=== PATIENT | female | born 1955 | race Caucasian/White ===

== ENCOUNTER 2017-08-15 06:11 | Day surgery (SDC) | payer BC, OTHER ==
[2017-08-04 12:40] VITALS: BMI 36.0
[~2017-08-15 06:11] MED LIST: SODIUM CHLORIDE 0.9% 1,000 ML IV SCH
[2017-08-15] MEDS ORDERED: HYDROmorphone (PF) 1 MG/ML ONE (07:26)
[2017-08-15] MEDS ORDERED: PROPOFOL 10 MG/ML 20 ML VIAL IV ONE (07:26)
[2017-08-15] MEDS ORDERED: SUCCINYLCHOLINE CHLORIDE 100 MG/5 ML SYR IV ONE (07:26)
[2017-08-15] MEDS ORDERED: IV FLUID CONTINUATION 1,000 ML IV ONE (07:26)
[2017-08-15] MEDS ORDERED: ePHEDrine SULFATE/0.9% NACL/PF 50 MG/5 ML SYRINGE IV ONE (07:26)
[2017-08-15] MEDS ORDERED: LIDOCAINE 1% INJ 10MG/ML (20 ML MDV) ONE (07:26)
[2017-08-15] MEDS ORDERED: MIDAZOLAM 2 MG/2 ML VIAL ONE (07:26)
[2017-08-15] MEDS ORDERED: ISOPROTERENOL 250 MCG/1.25 ML SYR IV ONE (07:26)
[2017-08-15] MEDS ORDERED: fentaNYL (PF) 50 MCG/ML 2 ML AMP ONE (07:26)
[2017-08-15] MEDS ORDERED: PROTAMINE SULFATE 10 MG/ML 5 ML VIAL IV ONE (07:26)
[2017-08-15] MEDS ORDERED: PHENYLEPHRINE-0.9% NACL SYG 1 MG/10 ML SYRINGE ONE (07:26)
[2017-08-15] MEDS ORDERED: HEPARIN SODIUM,PORCINE 10,000 UNIT/ML 1 ML VIAL ONE (07:26)
[2017-08-15] MEDS ORDERED: ceFAZolin IN SWFI 2 GM/20 ML SYRINGE IVP ONE (07:30)
[2017-08-15 07:32] LABS: INR 2.2 (<1.2); Prothrombin Time 19.6 sec (9.0-12.0)
[2017-08-15] MEDS ORDERED: HEPARIN SOD,PORK IN 0.45% NACL 25,000 UNIT in 0.45% NACL 1 500ML.BAG IV ONE (08:05)
[2017-08-15] MEDS ORDERED: LIDOCAINE 2% INJ 20 MG/ML SQ ONE ×2 (08:13→08:15)
[2017-08-15] MEDS ORDERED: ACETAMINOPHEN TAB 325 MG TAB PO PRN (10:52)
[2017-08-15] MEDS ORDERED: HYDROcodone/APAP 5-325MG 1 EACH TAB PO PRN (10:52)
[2017-08-15] MEDS ORDERED: IOHEXOL 350 MG/ML 125ML BOTTLE INJ ONE (10:54)
--- NOTE | 2017-08-15 11:08 | P.PCN ---
Preoperative Diagnosis: Procedures performed ([facility] - CRYO Ablation) Invasive hemodynamic monitoring while general anesthesia, right femoral arterial line for monitoring and sampling Comprehensive diagnostic EP study with attempted arrhythmia induction CS pacing and recording Drug infusion Catheter the mapping of the tachycardia (NOT 3D mapping) Intracardiac echocardiography Pulmonary vein isolation with transseptal and comprehensive EPS, [id number] Dual-chamber pacemaker interrogation with reprogramming Procedure details Patient was brought to the EP lab in a fasting state. Written informed consent was obtained prior to the procedure. Procedure performed under general anesthesia After initial muscle relaxant use, muscle relaxants were not given thereafter in order to assess phrenic nerve during procedure Patient prepped and draped as per protocol Full cryo-set up with standard preparation of the cryoablation tools done Femoral Venous access obtained on the right and left groins Sheaths placed Diagnostic catheters for the high right atrium, phrenic nerve stimulation and pacing, His bundle, RV and coronary sinus placed Intracardiac echo catheter placed Long sheath placed in the right atrium Left and right transseptal catheterization performed under intracardiac echo guidance Intravenous heparin with aCT above 300 Later, catheter positioning and balloon positioning under intracardiac echo Baseline measurements Sinus cycle length 831 ms, PA interval 182 ms, QRS 84 ms and QT 470 ms AH 50 ms and HV 41 ms Comprehensive diagnostic EP study with drug infusion Atrial pacing performed from the high right atrium and the coronary sinus Sinus recovery times at 600 504 100 ms were 1421, 1410 and 26471 seconds respectively did AV node Wenckebach block for 20 ms. Asynchronous CS and from the right ventricle. Pacing from the high right atrium. VA Wenckebach block for 20 ms. AV node Wenckebach block on Isuprel 370 ms No atrial fibrillation induced during pacing on high-dose Isuprel Transseptal catheterization performed RA pressure 25/8/15 LA pressure 15/8/12 Transseptal catheterization performed with standard sheath. The cryoablation sheath was then placed with an over the wire exchange without any acute complications. All 4 pulmonary veins were isolated in the following sequence: Left superior followed by left inferior followed by right superior followed by right inferior The cryo-ablation balloon was placed at the os of each vein 1.5 mL of IV dye was injected to confirm an occluded vein Goal during cryoablation was to achieve -30C in the first 30 seconds. If not the balloon was repositioned to obtain this result After completion of Cryoblation with durations from 180-240 seconds, entrance block was confirmed with the Attain circular catheter in a roving fashion around the antrum of the pulmonary veins Phrenic nerve pacing was performed from the SVC, right innominate vein area and diaphragm voltage was monitored as well as manually Parameter goals for each cryo freeze -30C by 30 seconds -40C by 60 seconds Mediated between minus 40-55 Thaw time greater than 10 seconds Balloon visualized by intracardiac echo to ensure that the proximal one third was within the left atrium/antrum Left superior pulmonary vein 4 minute single cryoablation in the left superior 2 minute single cryoablation in the left middle Complete isolation with entrance block and exit block Left inferior pulmonary vein Successful cryoablation 2 minutes followed by 3 minutes with complete isolation with entrance and exit block Right superior pulmonary vein, during phrenic nerve pacing 2 minutes followed by 3 minutes of Cryoblation with entrance and exit block Right inferior pulmonary vein, during phrenic nerve pacing 2 minutes followed by 3 minutes of cryoablation with complete isolation with entrance and exit block At the end of the procedure the Achieve catheter was once again used to check for entrance block Phrenic nerve stimulation was performed to confirm diaphragmatic stimulation the end of the procedure Cine fluoroscopy was performed at the very end of the procedure to confirm movement of both diaphragms with inspiration and expiration At the end of the procedure the patient was extubated Heparin was reversed Venous sheaths were removed and hemostasis assured Result Successful pulmonary vein isolation using cryo-ablation Complete entrance block in all 4 veins confirmed No evidence for phrenic nerve injury Condition: stable
[2017-08-15] MEDS ORDERED: SODIUM CHLORIDE 0.9% 500 ML IV ONE (11:54)
[2017-08-15] MEDS ORDERED: ACETAMINOPHEN IV (For NPO) 1,000 MG in EMPTY BAG 1 BAG IVPB ONE (13:30)
[2017-08-15] MEDS ORDERED: WARFARIN 5 MG TAB PO ONE (18:00)
[2017-08-16 02:09] VITALS: RESP 18
[2017-08-16] MEDS ORDERED: FUROSEMIDE 40 MG TAB PO ONE (07:00)
--- NOTE | 2017-08-16 08:12 | P.DS ---
Providers Attending physician: Murali Oneil Primary care physician: [facility] Course: Patient is doing reasonably well from a cardiac standpoint. Temperature 98.5F blood pressure 117/61 mmHg respirations 16 unlabored she is resting comfortably in bed about to have breakfast pulse rate is in the 60s no atrial fibrillation she complains of an achy sensation all across her chest in the front and on the sides slightly was taking a deep breath and she also complains of cough Breath sounds are clear no rhonchi no crackles heart sounds S1 and S2 are normal no murmurs or gallops Abdomen soft nontender Both groins have healed well there is no hematoma no tenderness no lower extremity edema Impression Paroxysmal symptomatic atrial fibrillation with RVR and intolerant of flecainide and breakthrough episodes on flecainide status post cryoablation of the pulmonary veins, successful Sick sinus syndrome status post permanent pacemaker implantation previously 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 patient presented with TIA at that time in years back no recurrences since Plan No changes in medications, discharge home today after lunch, it was emphasized to the patient to ambulate in the hallways prior to discharge and to avoid lifting anything heavy about 10 pounds for the next 3-4 days but ambulate at home and not rest in bed Patient Condition at Discharge: Stable Plan - Discharge Summary Discharge Rx Participant: No New Discharge Prescriptions: Continue Warfarin [Coumadin] 2.5 mg PO SUTUFRSA Warfarin [Coumadin] 5 mg PO SUMOWEFR traMADol HCL [Ultram] 50 mg PO DIRECTED PRN PRN Reason: Migraine Headache Digoxin [Lanoxin] 125 mcg PO DAILY Metoprolol Succinate [Toprol XL] 50 mg PO DIRECTED Discharge Medication List Warfarin [Coumadin] 2.5 mg PO SUTUFRSA 04/29/16 [History] Warfarin [Coumadin] 5 mg PO SUMOWEFR 04/29/16 [History] traMADol HCL [Ultram] 50 mg PO DIRECTED PRN 04/29/16 [History] Digoxin [Lanoxin] 125 mcg PO DAILY 08/04/17 [History] Metoprolol Succinate [Toprol XL] 50 mg PO DIRECTED 08/15/17 [History] Follow up Appointment(s)/Referral(s): Murali Oneil MD [STAFF PHYSICIAN] - 2 Weeks Patient Instructions/Handouts: Cardiac Ablation (DC) Activity/Diet/Wound Care/Special Instructions: Post EP study - Ablation instructions 1. Keep access sites dry for 2 days. 2. No heavy lifting or straining for 2 days. 3. Avoid bending the hips repeatedly for 2 days. 4. You may go up and down stairs slowly Call if the following is noted 1. Bleeding, increasing swelling or pain at the access sites. 2. Increasing chest discomfort, especially upon taking a deep breath. 3. Increasing shortness of breath, at rest or with exertion. 4. Undue cough / phlegm 5. Difficulty or pain while swallowing. 6. Pain or change in color in the extremities. 7. Fever, chills, rigors. 8. Increasing headache or neurologic symptoms. 9. Dizziness, fainting, palpitations No changes in home medications No new medications Follow-up in the office within 2 weeks for a groin check along with a PT[facility] check [facility] Continue Coumadin lifelong Discharge Disposition: HOME SELF-CARE
[2017-08-16] MEDS ORDERED: DIGOXIN 125 MCG TAB PO SCH (09:00)
[2017-08-16 11:44] VITALS: BP 124/66; PULSE 73; TEMP 98.1
[2017-08-16] MEDS ORDERED: WARFARIN 5 MG TAB PO SCH (18:00)
[2017-08-18] MEDS ORDERED: WARFARIN 2.5 MG TAB PO SCH (18:00)
== END 2017-08-16 12:01 | disposition home or self-care (01) ==
LOC: CATHEP 06:11 → 6SEL 10:36 → CATHEP 08-16 12:01
PROVIDERS: ATTEND Internal Medicine Clinical Cardiac Electrophysiology
DX: I48.0 Paroxysmal atrial fibrillation (principal); I49.5 Sick sinus syndrome; I47.1 Supraventricular tachycardia; Z79.01 Long term (current) use of anticoagulants; Z95.0 Presence of cardiac pacemaker; Z86.73 Personal history of transient ischemic attack (TIA), and cerebral infarction without residual deficits; Z85.29 Personal history of malignant neoplasm of other respiratory and intrathoracic organs; Z79.899 Other long term (current) drug therapy; Z82.49 Family history of ischemic heart disease and other diseases of the circulatory system
CPT/HCPCS: 85347; 93662; 93609; 93656; 85610; C1769 ×4; C1894 ×3; C1730 ×3; C1759; C1893; C1733; C1766; J2001 ×2; J2250; J2720; J1644 ×2; J0690; J3010; J1170; J0131; J2370; J0330; J2704; Q9967

== ENCOUNTER → 2019-06-17 | Outpatient (CLI) | payer BC, OTHER ==
[2019-06-17 08:53] LABS: INR 1.2 (<1.2); Prothrombin Time 12.4 sec (9.0-12.0)
== END ==
LOC: LABWHC1 08:19
PROVIDERS: ATTEND Family Medicine
DX: I48.91 Unspecified atrial fibrillation (principal)
CPT/HCPCS: 36415; 85610

== ENCOUNTER 2021-08-08 11:19 | Emergency (ER) | payer MEDICARE, OTHER ==
[2021-08-08 12:09] VITALS: RESP 18
[2021-08-08] MEDS ORDERED: KETOROLAC 15 MG/ML 1 ML VIAL IVP STA (12:09)
[2021-08-08] MEDS ORDERED: SODIUM CHLORIDE 0.9% 500 ML 500 ML IV STA (12:09)
--- NOTE | 2021-08-08 12:09 | ED ---
General Adult HPI - General Chief complaint: Urogenital Stated complaint: left hip and back pain Time Seen by Provider: 08/08/21 11:55 Source: patient, RN notes reviewed, old records reviewed Mode of arrival: ambulatory Limitations: no limitations - History of Present Illness Initial comments: 66-year-old female, alert and oriented 4, presents to the emergency room with complaints of left flank pain that started today with urinary frequency since July 25. She states that she did see her primary care doctor and had a urinalysis and culture done and was negative. Patient states that she continues to have this left flank pain but denies fevers. She states that it does not burn with urination however she feels a pressure like she needs to go however only small amounts come out. She denies any blood in her urine. She describes the pain as constant and comes and goes in waves that increase in pain. She does have a decreased appetite but no nausea vomiting or diarrhea. History of atrial fibrillation and CVA. She states that she is on coumadin. -: week(s) (2) Location: back (flank), left Radiation: flank Severity scale (1-10): 6 Consistency: constant Associated Symptoms: other (urinary frequency) - Related Data Home Medications Medication Instructions Recorded Confirmed Warfarin [Coumadin] 2.5 mg PO SUTUFRSA 04/29/16 08/15/17 Warfarin [Coumadin] 5 mg PO SUMOWEFR 04/29/16 08/15/17 traMADol HCL [Ultram] 50 mg PO DIRECTED PRN 04/29/16 08/15/17 Digoxin [Lanoxin] 125 mcg PO DAILY 08/04/17 08/15/17 Metoprolol Succinate [Toprol XL] 50 mg PO DIRECTED 08/15/17 08/15/17 Allergies Allergy/AdvReac Type Severity Reaction Status Date / Time povidone-iodine Allergy Unknown Rash/Hives, Verified 08/08/21 11:43 [From Betadine] Swelling soap [From Betadine] Allergy Unknown Rash/Hives, Verified 08/08/21 11:43 Swelling Review of Systems ROS Statement: Those systems with pertinent positive or pertinent negative responses have been documented in the HPI. ROS Other: All systems not noted in ROS Statement are negative. 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 Past Anesthesia/Blood Transfusion Reactions: No Reported Reaction, Motion Sickness Additional Past Anesthesia/Blood Transfusion Reaction / Comment(s): MOTION SICKNESS IF READING IN CAR. Type of Cardiac Device: Permanent Pacemaker Device Placement Date:: 07/11/16-[employer] Past Psychological History: No Psychological Hx Reported Smoking Status: Never smoker Past Alcohol Use History: Rare Past Drug Use History: None Reported - Past Family History Father Family Medical History: Cancer Additional Family Medical History / Comment(s): LYMPHOMA General Exam Limitations: no limitations General appearance: alert, in no apparent distress Head exam: Present: atraumatic, normocephalic, normal inspection Eye exam: Present: normal appearance, EOMI. Absent: scleral icterus, conjunctival injection ENT exam: Present: normal exam, normal oropharynx, mucous membranes moist Respiratory exam: Present: normal lung sounds bilaterally. Absent: respiratory distress, wheezes, rales, rhonchi, stridor, chest wall tenderness, accessory muscle use Cardiovascular Exam: Present: regular rate, normal rhythm, normal heart sounds. Absent: systolic murmur, diastolic murmur, rubs, gallop, clicks GI/Abdominal exam: Present: soft, tenderness (left lower quadrant and flank). Absent: distended Extremities exam: Present: normal inspection, full ROM, normal capillary refill. Absent: tenderness, pedal edema, joint swelling, calf tenderness Back exam: Present: normal inspection, full ROM. Absent: tenderness, CVA tenderness (R), CVA tenderness (L), rash noted Neurological exam: Present: alert, oriented X3, normal gait Psychiatric exam: Present: normal affect, normal mood Skin exam: Present: warm, dry, intact, normal color. Absent: rash Course Vital Signs 08/08/21 08/08/21 12:05 13:55 Temperature 98.8 F 98.5 F Pulse Rate 68 54 L Respiratory 18 18 Rate Blood Pressure 158/84 112/57 O2 Sat by Pulse 99 99 Oximetry Medical Decision Making - Medical Decision Making 66-year-old female presents with complaints of left flank pain that started today with urinary frequency since July 25. She did see her primary care doctor and UA and culture was negative. She describes the pain as constant and comes and goes in waves that increase in pain. She denies nausea vomiting or diarrhea. CT of the abdomen shows diverticulosis without diverticulitis. There is no suspicious changes to account for the left flank pain. No renal or ureteral stones evident. KUB x-ray shows nonspecific abdomen. There is no evidence of leukocytosis. UA is negative ketones, positive for blood. Patient states that pain has resolved and she's been able to urinate in larger amounts since coming to ER. This is likely a kidney stone that has passed. She was referred to follow up with her primary care doctor and urology as needed. Return to the emergency room with any new or concerning symptoms. Case discussed with Dr. Cabrales - Lab Data Result diagrams: 08/08/21 12:48 08/08/21 12:48 Lab Results 08/08/21 08/08/21 08/08/21 Range/Units 12:04 12:48 12:48 WBC 6.5 (3.8-10.6) k/uL RBC 5.24 (3.80-5.40) m/uL Hgb 15.0 (11.4-16.0) gm/dL Hct 45.6 (34.0-46.0) % MCV 87.1 (80.0-100.0) fL MCH 28.7 (25.0-35.0) pg MCHC 32.9 (31.0-37.0) g/dL RDW 13.5 (11.5-15.5) % Plt Count 229 (150-450) k/uL MPV 8.6 Neutrophils % 53 % Lymphocytes % 36 % Monocytes % 6 % Eosinophils % 3 % Basophils % 1 % Neutrophils # 3.4 (1.3-7.7) k/uL Lymphocytes # 2.3 (1.0-4.8) k/uL Monocytes # 0.4 (0-1.0) k/uL Eosinophils # 0.2 (0-0.7) k/uL Basophils # 0.1 (0-0.2) k/uL Sodium 142 (137-145) mmol/L Potassium 4.5 (3.5-5.1) mmol/L Chloride 107 (98-107) mmol/L Carbon Dioxide 28 (22-30) mmol/L Anion Gap 7 mmol/L BUN 16 (7-17) mg/dL Creatinine 0.84 (0.52-1.04) mg/dL Est GFR (CKD-EPI)AfAm 84 (>60 ml/min/1.73 sqM) Est GFR (CKD-EPI)NonAf 73 (>60 ml/min/1.73 sqM) Glucose 109 H (74-99) mg/dL Calcium 10.7 H (8.4-10.2) mg/dL Total Bilirubin 1.5 H (0.2-1.3) mg/dL AST 29 (14-36) U/L ALT 23 (4-34) U/L Alkaline Phosphatase 104 (38-126) U/L Total Protein 7.4 (6.3-8.2) g/dL Albumin 4.4 (3.5-5.0) g/dL Amylase 66 (30-110) U/L Lipase 97 (23-300) U/L Urine Color Light Yellow Urine Appearance Clear (Clear) Urine pH 6.0 (5.0-8.0) Ur Specific [place] 1.003 (1.001-1.035) Urine Protein Negative (Negative) Urine Glucose (UA) Negative (Negative) Urine Ketones Negative (Negative) Urine Blood Large H (Negative) Urine Nitrite Negative (Negative) Urine Bilirubin Negative (Negative) Urine Urobilinogen <2.0 (<2.0) mg/dL Ur Leukocyte Esterase Small H (Negative) Urine RBC 2 (0-5) /hpf Urine WBC 2 (0-5) /hpf Ur Squamous Epith Cells 1 (0-4) /hpf Urine Bacteria Rare H (None) /hpf Disposition Clinical Impression: Dysuria Disposition: HOME SELF-CARE Condition: Good Instructions (If sedation given, give patient instructions): Dysuria (ED) Additional Instructions: Follow-up with your primary care doctor next week. Return to the emergency room with any new or worsening symptoms including increased pain, inability to urinate, fevers, nausea or vomiting. Is patient prescribed a controlled substance at d/c from ED?: No Referrals: Nonstaff,Physician [Primary Care Provider] - 1-2 days Ashvin Jolley MD [STAFF PHYSICIAN] - 1-2 days Time of Disposition: 13:26
--- NOTE | 2021-08-08 12:43 | XR ---
EXAMINATION TYPE: XR KUB DATE OF EXAM: 08/08/2021 COMPARISON: None INDICATION: Lower abdominal pain and back pain and urinary urgency TECHNIQUE: Single view abdomen upright view FINDINGS: There is a normal bowel gas pattern. Psoas margins are normal. No organomegaly is present. No free air is evident. No suspicious differential air-fluid levels are present. IMPRESSION: 1. Nonspecific abdomen
[2021-08-08 12:50] LABS: Appearance,Urine Clear (Clear); Bacteria,Urine Rare /hpf; Bilirubin,Urine Negative (Negative); Blood,Urine Large (Negative); Color,Urine Light Yellow; Glucose,Urine (UA) Negative (Negative); Ketones,Urine Negative (Negative); Leukocyte Esterase,Urine Small (Negative); Nitrite,Urine Negative (Negative); Protein,Urine Negative (Negative); RBC,Urine 2 /hpf (0-5); Specific Gravity,Urine 1.003 (1.001-1.035); Squamous Epithelial Cell,Urine 1 /hpf (0-4); Urobilinogen,Urine <2.0 mg/dL (<2.0); WBC,Urine 2 /hpf (0-5)
[2021-08-08 12:57] LABS: Basophils # (A) 0.1 k/uL (0-0.2); Basophils % (A) 1 %; Eosinophils # (A) 0.2 k/uL (0-0.7); Eosinophils % (A) 3 %; HCT 45.6 % (34.0-46.0); Lymphocytes # (A) 2.3 k/uL (1.0-4.8); Lymphocytes % (A) 36 %; MCH 28.7 pg (25.0-35.0); MCHC 32.9 g/dL (31.0-37.0); MCV 87.1 fL (80.0-100.0); Mean Platelet Volume 8.6; Monocytes # (A) 0.4 k/uL (0-1.0); Monocytes % (A) 6 %; Neutrophils # (A) 3.4 k/uL (1.3-7.7); Neutrophils % (A) 53 %; Platelet Count 229 k/uL (150-450); RBC 5.24 m/uL (3.80-5.40); RDW 13.5 % (11.5-15.5); WBC 6.5 k/uL (3.8-10.6)
--- NOTE | 2021-08-08 12:58 | CT ---
EXAMINATION TYPE: CT abdomen pelvis wo con DATE OF EXAM: 08/08/2021 COMPARISON: None INDICATION: left flank pain DLP: 1031.4 mGycm, Automated exposure control for dose reduction was used. CONTRAST: 0 mL of Isovue 300. Study performed without Oral Contrast TECHNIQUE: Axial images were obtained from above the diaphragm to the pubic rami in the axial plane a t 5 mm thick sections. Reconstructed images are reviewed on the computer in the coronal plane. FINDINGS: Limited CT sections are obtained the lung bases. The lung bases are clear. CT ABDOMEN: Liver: Normal Spleen: Normal Pancreas: Normal Adrenal glands: The adrenal glands are normal. Gallbladder: Normal Kidneys: No masses are evident. No hydronephrosis is present. No hydroureter is evident. No cysts a re present. No renal or ureteral stones are evident. Aorta: Vascular calcification is within the aorta. Inferior vena cava: Normal. CT PELVIS: Loops of bowel within the abdomen and pelvis are normal. A few small scattered diverticuli within the proximal sigmoid colon. No inflammatory changes are adjacent to suggest acute diverticulitis. The study is without oral contrast limiting evaluation. Appendix: Not identified. No suspicious dilated tubular structure or inflammatory changes are evident . Urinary bladder: Normal. Genitourinary structures: Uterus and ovaries not identified. Osseous structures: No suspicious lytic or sclerotic lesions. IMPRESSIONS: 1. Diverticulosis without acute diverticulitis. 2. No suspicious changes to account for left flank pain
[2021-08-08 13:13] LABS: Albumin 4.4 g/dL (3.5-5.0); Calcium 10.7 mg/dL (8.4-10.2); Total Bilirubin 1.5 mg/dL (0.2-1.3); Total Protein 7.4 g/dL (6.3-8.2)
[2021-08-08 13:25] LABS: Potassium 4.5 mmol/L (3.5-5.1)
[2021-08-08 14:35] VITALS: BP 112/57; PULSE 54; TEMP 98.5
== END 2021-08-08 13:55 | disposition home or self-care (01) ==
LOC: EC 11:19
DX: R30.0 Dysuria (principal); I48.91 Unspecified atrial fibrillation; I50.9 Heart failure, unspecified; M19.90 Unspecified osteoarthritis, unspecified site; Z79.01 Long term (current) use of anticoagulants; Z86.73 Personal history of transient ischemic attack (TIA), and cerebral infarction without residual deficits; Z90.710 Acquired absence of both cervix and uterus; Z95.0 Presence of cardiac pacemaker
CPT/HCPCS: 36415; 51798; 74018; 74176; 80053; 81001; 82150; 83690; 85025; 96360; 99284

== ENCOUNTER 2022-12-11 23:23 | Inpatient (IN) | payer MEDICARE, OTHER ==
[2022-12-12 00:32] LABS: Basophils % (A) 0 %; Eosinophils # (A) 0.1 k/uL (0-0.7); Eosinophils % (A) 1 %; HCT 37.5 % (34.0-46.0); HGB 12.8 gm/dL (11.4-16.0); Lymphocytes # (A) 2.5 k/uL (1.0-4.8); Lymphocytes % (A) 35 %; MCH 28.3 pg (25.0-35.0); MCHC 34.2 g/dL (31.0-37.0); MCV 82.6 fL (80.0-100.0); Mean Platelet Volume 9.2; Monocytes # (A) 0.5 k/uL (0-1.0); Monocytes % (A) 7 %; Neutrophils # (A) 3.9 k/uL (1.3-7.7); Neutrophils % (A) 54 %; Platelet Count 216 k/uL (150-450); RBC 4.55 m/uL (3.80-5.40); RDW 13.9 % (11.5-15.5); WBC 7.2 k/uL (3.8-10.6)
[2022-12-12 00:37] LABS: ALT 25 U/L (4-34); AST 32 U/L (14-36); African American GFR (CKD) >90 (>60 ml/min/1.73 sqM); Albumin 4.1 g/dL (3.5-5.0); Alkaline Phosphatase 81 U/L (38-126); Anion Gap 11 mmol/L; Blood Urea Nitrogen 13 mg/dL (7-17); Calcium 9.6 mg/dL (8.4-10.2); Carbon Dioxide 22 mmol/L (22-30); Chloride 105 mmol/L (98-107); Glucose 117 mg/dL (74-99); Non-African American GFR(CKD) 88 (>60 ml/min/1.73 sqM); Potassium 4.1 mmol/L (3.5-5.1); Sodium 138 mmol/L (137-145); Total Bilirubin 3.8 mg/dL (0.2-1.3); Total Protein 6.7 g/dL (6.3-8.2)
[2022-12-12 00:43] LABS: Prothrombin Time 113.3 sec (9.0-12.0)
[2022-12-12 00:58] LABS: INR >10.0 (<1.2); Partial Thromboplastin Time 80.6 sec (22.0-30.0)
--- NOTE | 2022-12-12 01:08 | ED ---
General Adult HPI - General Chief complaint: Recheck/Abnormal Lab/Rx Stated complaint: Throat Swelling, Difficulty Breathing Time Seen by Provider: 12/11/22 23:46 Source: patient, family, RN notes reviewed Mode of arrival: wheelchair Limitations: no limitations - History of Present Illness Initial comments: 67-year-old female with past medical history of valve replacement and atrial fibrillation presents to the emergency department with a chief complaint of abnormal labs. Patient reports that she was evaluated here 12/10/2022 and had an elevated INR value. She reports that she is on Coumadin and has been for 20 years. She reports that she was encouraged to return to the emergency department if symptoms worsen or persist. Today she is complaining of worsening bruising and difficulty swallowing sensation. She denies any, or injury. She denies any fever, chills, hematemesis, hematemesis, nausea, vomiting, chest pain, shortness of breath, dyspnea, edema. She reports that she stopped taking her Coumadin on 12/09/2022. - Related Data Home Medications Medication Instructions Recorded Confirmed Warfarin [Coumadin] 2.5 mg PO TUSA 04/29/16 12/12/22 Warfarin [Coumadin] 5 mg PO SUMOWETHFR 04/29/16 12/12/22 traMADol HCL [Ultram] 50 mg PO QID PRN 04/29/16 12/12/22 Digoxin [Lanoxin] 125 mcg PO DAILY 08/04/17 12/12/22 Rosuvastatin [Crestor] 10 mg PO HS 12/12/22 12/12/22 clonazePAM [KlonoPIN] 1 mg PO HS 12/12/22 12/12/22 Allergies Allergy/AdvReac Type Severity Reaction Status Date / Time povidone-iodine Allergy Unknown Rash/Hives, Verified 12/12/22 08:01 [From Betadine] Swelling soap [From Betadine] Allergy Unknown Rash/Hives, Verified 12/12/22 08:01 Swelling meat AdvReac Does not Uncoded 12/12/22 08:01 eat meat Review of Systems ROS Statement: Those systems with pertinent positive or pertinent negative responses have been documented in the HPI. ROS Other: All systems not noted in ROS Statement are negative. 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 Past Anesthesia/Blood Transfusion Reactions: No Reported Reaction, Motion Sickness Additional Past Anesthesia/Blood Transfusion Reaction / Comment(s): MOTION SI CKNESS IF READING IN CAR. Type of Cardiac Device: Permanent Pacemaker Device Placement Date:: 07/11/16-[facility] Past Psychological History: No Psychological Hx Reported Smoking Status: Never smoker Past Alcohol Use History: Rare Past Drug Use History: None Reported - Past Family History Father Family Medical History: Cancer Additional Family Medical History / Comment(s): LYMPHOMA General Exam - General Exam Comments Initial Comments: General: Alert, in no acute distress Head: atraumatic normocephalic. Eyes PERRL, EOMI intact, mucous membranes moist, airway patent patient able to speak in complete sentences ecchymosis underneath her tongue Respiratory: Lungs clear to auscultation bilaterally Cardiovascular: Heart rate regular rate and rhythm Abdominal: Soft without guarding or rebound Extremities: Normal inspection with full range of motion and normal capillary r efill, large bruise on left forearm, full range of motion bilateral upper extremities left hand is tender Neuroogic: alert and oriented 3, CN II-XII intact, able to ambulate with steady gait Skin: warm dry and intact with normal color Limitations: no limitations Course Vital Signs 12/11/22 12/11/22 12/12/22 23:35 23:55 03:22 Temperature 97.4 F L 98.2 F Pulse Rate 80 80 57 L Respiratory 16 18 18 Rate Blood Pressure 121/84 O2 Sat by Pulse 97 99 98 Oximetry 12/12/22 12/12/22 12/12/22 07:59 12:00 14:06 Temperature Pulse Rate 77 72 80 Respiratory 18 18 18 Rate Blood Pressure O2 Sat by Pulse 98 96 100 Oximetry 12/12/22 15:09 Temperature Pulse Rate 88 Respiratory 18 Rate Blood Pressure O2 Sat by Pulse 96 Oximetry - Reevaluation(s) Reevaluation #1: 12/12/22 01:20 Case discussed with urine from the agrees and accepts the patient for admission EKG Findings - EKG Comments: EKG Findings:: I interpreted the following: EKG performed at 1202 rate 80 bpm normal sinus rhythm WA interval 175, QRS duration 84, QT/QTc 347/382 Medical Decision Making - Medical Decision Making Was pt. sent in by a medical professional or institution (VENITA Morley, MUSIC SOUND LIGHT TECHNICIAN, urgent care, hospital, or assisted...) When possible be specific @ -[No] Did you speak to anyone other than the patient for history (EMS, parent, family, police, friend...)? What history was obtained from this source @ -[No] Did you review nursing and triage notes (agree or disagree)? Why? @ -[I reviewed and agree with nursing and triage notes] Were old charts reviewed (outside hosp., previous admission, EMS record, old EKG, old radiological studies, urgent care reports/EKG's, assisted records)? Report findings @ -[No old charts were reviewed] Differential Diagnosis (chest pain, altered mental status, abdominal pain women, abdominal pain men, vaginal bleeding, weakness, fever, dyspnea, syncope, headache, dizziness, GI bleed, back pain, seizure, CVA, palpatations, mental health, musculoskeletal)? @ -[not applicable] EKG interpreted by me (3pts min.). @ -[As above] X-rays interpreted by me (1pt min.). @ -[None done] CT interpreted by me (1pt min.). @ -[None done] U/S interpreted by me (1pt. min.). @ -[None done] What testing was considered but not performed or refused? (CT, X-rays, U/S, labs)? Why? @ -[None] What meds were considered but not given or refused? Why? @ -[None] Did you discuss the management of the patient with other professionals (professionals i.e. VENITA Morley, MUSIC SOUND LIGHT TECHNICIAN, lab, RT, psych nurse, social services assistant, public affairs officer, teacher, amphibious operations officer, home health care case manager)? Give summary @ -[No] Was smoking cessation discussed for >3mins.? @ -[No] Was critical care preformed (if so, how long)? @ -[No] Were there social determinants of health that impacted care today? How? (Homelessness, low income, unemployed, alcoholism, drug addiction, transportation, low edu. Level, literacy, decrease access to med. care, prison, rehab)? @ -[No] Was there de-escalation of care discussed even if they declined (Discuss DNR or withdrawal of care, Hospice)? DNR status @ -[No] What co-morbidities impacted this encounter? (DM, HTN, Smoking, COPD, CAD, Cancer, CVA, ARF, Chemo, Hep., AIDS, mental health diagnosis, sleep apnea, morbid obesity)? @ -[None] Was patient admitted / discharged? Hospital course, mention meds given and route, prescriptions, significant lab abnormalities, going to OR and other pertinent info. @ -67-year-old female presents to the emergency department with abnormal labs. Patient had a thorough history and physical exam performed heart rate regular rate and rhythm, lungs clear to auscultation bilaterally, abdomen is soft and nontender. Patient has. Areas of ecchymosis around her body. X- rays soft tissue negative for any acute process Labs remarkable for WBC 7.2, hemoglobin 12.8 PT 113, INR greater than 10, APTT 80.6 chemistry unremarkable troponin 0.012 Patient unable to provide urine sample during course of the ED Did discuss results in detail with the patient verbalized understanding and all questions were addressed. She is agreeable with the plan for admission. Case discussed with [facility] who agrees and accepts the patient. Case discussed with Dr. Valenzuela, [facility] who agrees with plan of care. Undiagnosed new problem with uncertain prognosis? @ -[No] Drug Therapy requiring intensive monitoring for toxicity (Heparin, Nitro, Insuli n, Cardizem)? @ -[No] Were any procedures done? @ -[No] Diagnosis/symptom? @ -Elevated INR Acute, or Chronic, or Acute on Chronic? @ -Acute Uncomplicated (without systemic symptoms) or Complicated (systemic symptoms)? @ -Complicated Side effects of treatment? @ -[No] Exacerbation, Progression, or Severe Exacerbation? @ -[No] Poses a threat to life or bodily function? How? (Chest pain, [place], [place], pneumonia, PE, COPD, DKA, ARF, appy, cholecystitis, CVA, Diverticulitis, Homicidal, Suicidal, threat to staff... and all critical care pts) @ -Severe likelihood including - Lab Data Result diagrams: 12/12/22 15:45 12/11/22 23:57 Lab Results 12/11/22 12/11/22 12/11/22 Range/Units 23:57 23:57 23:57 WBC 7.2 (3.8-10.6) k/uL RBC 4.55 (3.80-5.40) m/uL Hgb 12.8 (11.4-16.0) gm/dL Hct 37.5 (34.0-46.0) % MCV 82.6 (80.0-100.0) fL MCH 28.3 (25.0-35.0) pg MCHC 34.2 (31.0-37.0) g/dL RDW 13.9 (11.5-15.5) % Plt Count 216 (150-450) k/uL MPV 9.2 Neutrophils % 54 % Lymphocytes % 35 % Monocytes % 7 % Eosinophils % 1 % Basophils % 0 % Neutrophils # 3.9 (1.3-7.7) k/uL Lymphocytes # 2.5 (1.0-4.8) k/uL Monocytes # 0.5 (0-1.0) k/uL Eosinophils # 0.1 (0-0.7) k/uL Basophils # 0.0 (0-0.2) k/uL PT 113.3 H (9.0-12.0) sec INR >10.0 H* (<1.2) APTT 80.6 H (22.0-30.0) sec Sodium 138 (137-145) mmol/L Potassium 4.1 (3.5-5.1) mmol/L Chloride 105 (98-107) mmol/L Carbon Dioxide 22 (22-30) mmol/L Anion Gap 11 mmol/L BUN 13 (7-17) mg/dL Creatinine 0.72 (0.52-1.04) mg/dL Est GFR (CKD-EPI)AfAm >90 (>60 ml/min/1.73 sqM) Est GFR (CKD-EPI)NonAf 88 (>60 ml/min/1.73 sqM) Glucose 117 H (74-99) mg/dL Calcium 9.6 (8.4-10.2) mg/dL Total Bilirubin 3.8 H (0.2-1.3) mg/dL AST 32 (14-36) U/L ALT 25 (4-34) U/L Alkaline Phosphatase 81 (38-126) U/L Troponin I (0.000-0.034) ng/mL Total Protein 6.7 (6.3-8.2) g/dL Albumin 4.1 (3.5-5.0) g/dL Urine Color Urine Appearance (Clear) Urine pH (5.0-8.0) Ur Specific [place] (1.001-1.035) Urine Protein (Negative) Urine Glucose (UA) (Negative) Urine Ketones (Negative) Urine Blood (Negative) Urine Nitrite (Negative) Urine Bilirubin (Negative) Urine Urobilinogen (<2.0) mg/dL Ur Leukocyte Esterase (Negative) Urine RBC (0-5) /hpf Urine WBC (0-5) /hpf Ur Squamous Epith Cells (0-4) /hpf Urine Mucus (None) /hpf 12/11/22 12/12/22 12/12/22 Range/Units 23:57 04:19 09:40 WBC (3.8-10.6) k/uL RBC (3.80-5.40) m/uL Hgb (11.4-16.0) gm/dL Hct (34.0-46.0) % MCV (80.0-100.0) fL MCH (25.0-35.0) pg MCHC (31.0-37.0) g/dL RDW (11.5-15.5) % Plt Count (150-450) k/uL MPV Neutrophils % % Lymphocytes % % Monocytes % % Eosinophils % % Basophils % % Neutrophils # (1.3-7.7) k/uL Lymphocytes # (1.0-4.8) k/uL Monocytes # (0-1.0) k/uL Eosinophils # (0-0.7) k/uL Basophils # (0-0.2) k/uL PT 48.1 H (9.0-12.0) sec INR 4.9 H (<1.2) APTT (22.0-30.0) sec Sodium (137-145) mmol/L Potassium (3.5-5.1) mmol/L Chloride (98-107) mmol/L Carbon Dioxide (22-30) mmol/L Anion Gap mmol/L BUN (7-17) mg/dL Creatinine (0.52-1.04) mg/dL Est GFR (CKD-EPI)AfAm (>60 ml/min/1.73 sqM) Est GFR (CKD-EPI)NonAf (>60 ml/min/1.73 sqM) Glucose (74-99) mg/dL Calcium (8.4-10.2) mg/dL Total Bilirubin (0.2-1.3) mg/dL AST (14-36) U/L ALT (4-34) U/L Alkaline Phosphatase (38-126) U/L Troponin I <0.012 (0.000-0.034) ng/mL Total Protein (6.3-8.2) g/dL Albumin (3.5-5.0) g/dL Urine Color Red Urine Appearance Turbid H (Clear) Urine pH 5.5 (5.0-8.0) Ur Specific [place] 1.015 (1.001-1.035) Urine Protein 1+ H (Negative) Urine Glucose (UA) Negative (Negative) Urine Ketones 2+ H (Negative) Urine Blood Large H (Negative) Urine Nitrite Negative (Negative) Urine Bilirubin Negative (Negative) Urine Urobilinogen <2.0 (<2.0) mg/dL Ur Leukocyte Esterase Trace H (Negative) Urine RBC >182 H (0-5) /hpf Urine WBC 41 H (0-5) /hpf Ur Squamous Epith Cells 2 (0-4) /hpf Urine Mucus Few H (None) /hpf Disposition Clinical Impression: Elevated INR Disposition: ADMITTED IP TO THIS HOSP Condition: Fair Time of Disposition: 01:08
[2022-12-12] MEDS ORDERED: PHYTONADIONE ORAL 5 MG/5 ML ORAL.SYRG PO STA (01:12)
[2022-12-12] MEDS ORDERED: NALOXONE 0.4 MG/ML 1 ML VIAL IV PRN (01:21)
--- NOTE | 2022-12-12 04:12 | XR ---
EXAM: XR Soft Tissue Neck CLINICAL HISTORY: ITS.REASON XR Reason: throat bruising TECHNIQUE: Frontal and lateral views of the soft tissues of the neck. COMPARISON: No relevant prior studies available. FINDINGS: Airway: Unremarkable. No abnormal narrowing. Bones/joints: Unremarkable. Soft tissues: Unremarkable. No abnormal soft tissue prominence. Normal epiglottis. IMPRESSION: Normal neck x-rays.
[2022-12-12 04:35] LABS: Appearance,Urine Turbid (Clear); Bilirubin,Urine Negative (Negative); Blood,Urine Large (Negative); Color,Urine Red; Glucose,Urine (UA) Negative (Negative); Ketones,Urine 2+ (Negative); Leukocyte Esterase,Urine Trace (Negative); Mucus,Urine Few /hpf; Nitrite,Urine Negative (Negative); PH, Urine 5.5 (5.0-8.0); Protein,Urine 1+ (Negative); RBC,Urine >182 /hpf (0-5); Specific Gravity,Urine 1.015 (1.001-1.035); Squamous Epithelial Cell,Urine 2 /hpf (0-4); Urobilinogen,Urine <2.0 mg/dL (<2.0); WBC,Urine 41 /hpf (0-5)
[2022-12-12 10:04] LABS: INR 4.9 (<1.2); Prothrombin Time 48.1 sec (9.0-12.0)
[2022-12-12] MEDS ORDERED: traMADol 50 MG TAB PO PRN (11:22)
[2022-12-12] MEDS: methylPREDNISolone SOD SUCCI 40 MG/ML 1 ML VIAL IV SCH ×3 (13:08→23:18)
[2022-12-12] MEDS: SODIUM CHLORIDE 0.9% 1,000 ML IV SCH (13:12)
--- NOTE | 2022-12-12 14:14 | HP ---
HISTORY AND PHYSICAL CHIEF COMPLAINT: Throat swelling, difficulty breathing, and assess elevated PT/INR. HISTORY OF PRESENT ILLNESS: This is a 67-year-old woman with a past medical history of multiple medical problems including atrial fibrillation, was admitted with some throat swelling. The patient was trying to eat a dry toast according to her. INR was elevated more than 10. The patient was on Coumadin for the last 20 years and the patient was admitted for further evaluation. There is no history of any fever, rigors, or chills at this time. The patient received vitamin K p.o. and INR is 4.9 at this time. GI evaluation has been sought. The patient has hematuria possibly secondary to Coumadin coagulopathy. PAST MEDICAL HISTORY: Reviewed include atrial fibrillation, rest of the history and rest of the chart is also reviewed. HOME MEDICATIONS: Reviewed, Coumadin, doses and rest of medications reviewed. ALLERGIES: Betadine. Rest of the allergies reviewed. FAMILY HISTORY: History of lymphoma. SOCIAL HISTORY: No history of smoking or alcohol intake. REVIEW OF SYSTEMS: A 14-point review is negative except as mentioned earlier. PHYSICAL EXAMINATION: VITAL SIGNS: Pulse is 57, blood pressure 121/84, and respirations 16. HEENT: Conjunctivae normal. Oral mucosa moist. Some throat swelling present. No tenderness. No lymph node enlargement. CARDIOVASCULAR: S1, S2 muffled. RESPIRATIONS: Clear to auscultation. ABDOMEN: Soft, nontender. NERVOUS SYSTEM: No focal deficits. LABORATORY DATA: Reviewed. ASSESSMENT: 1. Coumadin coagulopathy. 2. Throat swelling and discomfort after eating a hard toast. 3. Atrial fibrillation. 4. CHF. 5. Cerebrovascular accident, transient ischemic attack. 6. Multiple medical issues. RECOMMENDATIONS AND DISCUSSION: This 67-year-old woman presented with multiple complex medical issues, we will monitor the patient closely. I would recommend to hold the Coumadin. Monitor PT/INR closely. Gastroenterology evaluation. The patient might require endoscope for further evaluation. Otherwise, I would give the patient some empiric steroids and continue to monitor. Further recommendations to follow. The bilirubin is slightly elevated. Prognosis guarded. MMODL / IJN: [id number] /
--- NOTE | 2022-12-12 15:13 | P.CONS ---
History of Present Illness - Reason for Consult Consult date: 12/12/22 Dysphagia Requesting physician: Steven Villasenor - Chief Complaint elevated INR, bruising, difficulty breathing - History of Present Illness Patient is a 67-year-old female who presented to the emergency department for elevated INR and concerns for difficulty with breathing, swallowing and bruising. She has a past medical history including coronary artery disease status post pacemaker and cardiac ablation, atrial fibrillation on Coumadin, heart valve tumor, and TIA. Patient states she presented to the emergency department with concerns for abnormal INR from her doctor's office on 12/10/2022 she was known to have a INR greater than 10 and she reportedly was given vitamin K and sent home to follow-up with her PCP. Early this morning she woke up and she states that she was having some difficulty with swallowing noticed that she had a hematoma on her tongue and frenulum, as well as bruising and swelling along her neck and arms. Patient states on she has having difficulty swallowing she feels that she has swelling in the back of her throat, however denies any di scomfort with actually swallowing and esophageal area no epigastric pain. She's had no previous history of any dysphasia, GERD, or peptic ulcer disease. Currently she is on a clear liquid diet and having even some difficulty getting that down her throat. Patient also states urine is bloody. Denies any blood in her stool or rectal bleeding. Admitting labs WBC 7.2 hemoglobin 12.8 hematocrit 37 platelet count 216,000 PT 113 INR greater than 10 PTT 80.6 sodium 138 potassium 4.1 BUN 13 creatinine 0.7 total bilirubin 3.8 AST 32 ALT 25 alkaline phosphatase 81 Review of Systems REVIEW OF SYSTEMS: CARDIOPULMONARY: No chest pain. Patient states she has having difficulty with breathing and swallowing. Feels swollen in the back of her throat. Gastrointestinal: No epigastric pain, no abdominal pain. Patient denies any pain with swallowing in the esophagus, does not feel like anything is getting stuck in the esophagus only at the back of her throat. No nausea or vomiting. No hematemesis, coffee-ground emesis. No rectal bleeding, or melena. GENITOURINARY: No dysuria or hematuria. MUSCULOSKELETAL: Reports normal range of motion. Joint pain. SKIN: No rashes. No jaundice. Bilateral upper extremity bruising ENDOCRINE: No chills, fevers. No excessive weight gain or loss. No polydipsia or polyuria. PSYCHIATRIC: Unremarkable. NEUROLOGY: No change in mental status. Denies dizziness, headache. ENT: Vision unremarkable. Throat feels as if it is swollen, difficult to breathe. Hematoma to tongue and frenulum. CONSTITUTIONAL: No recent weight loss. No fever, chills, night sweats. 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 Past Anesthesia/Blood Transfusion Reactions: No Reported Reaction, Motion Sickness Additional Past Anesthesia/Blood Transfusion Reaction / Comm: MOTION SICKNESS IF READING IN CAR. Type of Cardiac Device: Permanent Pacemaker Device Placement Date:: 07/11/16-[employer] Past Psychological History: No Psychological Hx Reported Smoking Status: Never smoker Past Alcohol Use History: Rare Past Drug Use History: None Reported - Past Family History Father Family Medical History: Cancer Additional Family Medical History / Comment(s): LYMPHOMA Medications and Allergies Home Medications Medication Instructions Recorded Confirmed Type Warfarin [Coumadin] 2.5 mg PO TUSA 04/29/16 12/12/22 History Warfarin [Coumadin] 5 mg PO SUMOWETHFR 04/29/16 12/12/22 History traMADol HCL [Ultram] 50 mg PO QID PRN 04/29/16 12/12/22 History Digoxin [Lanoxin] 125 mcg PO DAILY 08/04/17 12/12/22 History Rosuvastatin [Crestor] 10 mg PO HS 12/12/22 12/12/22 History clonazePAM [KlonoPIN] 1 mg PO HS 12/12/22 12/12/22 History Allergies Allergy/AdvReac Type Severity Reaction Status Date / Time povidone-iodine Allergy Unknown Rash/Hives, Verified 12/12/22 08:01 [From Betadine] Swelling soap [From Betadine] Allergy Unknown Rash/Hives, Verified 12/12/22 08:01 Swelling meat AdvReac Does not Uncoded 12/12/22 08:01 eat meat Physical Exam Vitals: Vital Signs Temp Pulse Resp BP Pulse Ox 12/12/22 14:06 80 18 100 12/12/22 12:00 72 18 96 12/12/22 07:59 77 18 98 12/12/22 03:22 57 L 18 98 12/11/22 23:55 98.2 F 80 18 99 12/11/22 23:35 97.4 F L 80 16 121/84 97 Intake and Output 12/11/22 12/12/22 12/12/22 22:59 06:59 14:59 Other: Weight 87.997 kg General appearance: The patient is alert, oriented, appears in no acute distress. HET: Head is normocephalic and atraumatic. Conjunctiva pink. Sclera anicteric. Neck: Supple. Ecchymosis along anterior aspect of neck/throat region. Trachea midline. Heart: S1 S2. Regular rate and rhythm. Lungs: Clear to auscultation. Abdomen: Soft, nontender, nondistended with bowel sounds. No guarding or rigidity. Skin: No rashes. No jaundice. Bilateral upper extremities with swelling and ecchymosis. Extremities: Normal skin color and turgor. No pedal edema. Neurological: No focal deficits. Alert and oriented x3. Results CBC & Chem 7: 12/11/22 23:57 12/11/22 23:57 Labs: Abnormal Lab Results - Last 24 Hours (Table) 12/11/22 12/11/22 12/12/22 Range/Units 23:57 23:57 04:19 PT 113.3 H (9.0-12.0) sec INR >10.0 H* (<1.2) APTT 80.6 H (22.0-30.0) sec Glucose 117 H (74-99) mg/dL Total Bilirubin 3.8 H (0.2-1.3) mg/dL Urine Appearance Turbid H (Clear) Urine Protein 1+ H (Negative) Urine Ketones 2+ H (Negative) Urine Blood Large H (Negative) Ur Leukocyte Esterase Trace H (Negative) Urine RBC >182 H (0-5) /hpf Urine WBC 41 H (0-5) /hpf Urine Mucus Few H (None) /hpf 12/12/22 Range/Units 09:40 PT 48.1 H (9.0-12.0) sec INR 4.9 H (<1.2) APTT (22.0-30.0) sec Glucose (74-99) mg/dL Total Bilirubin (0.2-1.3) mg/dL Urine Appearance (Clear) Urine Protein (Negative) Urine Ketones (Negative) Urine Blood (Negative) Ur Leukocyte Esterase (Negative) Urine RBC (0-5) /hpf Urine WBC (0-5) /hpf Urine Mucus (None) /hpf Assessment and Plan (1) Difficulty swallowing Narrative/Plan: 67-year-old female with history of coronary artery disease on Coumadin for atrial fibrillation presented to the emergency department with concerns for bruising and difficulty with swallowing and feeling as though her throat is swollen and was noted to have INR greater than 10. Patient was seen at the emergency department just today before I can with a INR greater than 10 was given Coumadin and told to follow-up with her primary care provider. Patient was concerned late last night with having significant bruising on her upper extremities, her tongue and noticing bleeding clot under her tongue as well as having difficulty with swallowing and feeling as though her throat with swollen. She came to the emergency department noted to have a INR greater than 10, with her last dose of Coumadin on Monday. Patient was treated with vitamin K and gastroenterology was consulted for dysphagia. Patient's symptoms do not appear consistent with esophageal dysphagia or stricture. Patient's symptoms seem to be coming from the back of the throat, she is even having difficulty with thin liquids. Patient noted to have hematoma on tongue and frenulum unable to clearly see the back of the throat however concern for further swelling and/or hematoma. This was discussed with the primary medicine team with recommendation for ENT consultation and further evaluation of airway. Current Visit: Yes Status: Acute Code(s): R13.10 - DYSPHAGIA, UNSPECIFIED SNOMED Code(s): 90279521 (2) Swelling of throat Current Visit: Yes Status: Acute Code(s): J39.2 - OTHER DISEASES OF PHARYNX SNOMED Code(s): 7566957 (3) Hematoma Narrative/Plan: Patient with hematoma on tongue and frenulum below tongue Current Visit: Yes Status: Acute Code(s): T14.8XXA - OTHER INJURY OF UNSPECIFIED BODY REGION, INITIAL ENCOUNTER SNOMED Code(s): 068206134 (4) Coagulopathy Current Visit: No Status: Acute Code(s): D68.9 - COAGULATION DEFECT, UNSPECIFIED SNOMED Code(s): 35028808 Plan: 1. Continue symptomatic and supportive care 2. Protonix 40 mg IV push for GI prophylaxis 3. Stat CBC ordered, daily CBC, INR 4. Hold anticoagulation 5. No planes and endoscopic evaluation 6. Recommend consult to ENT and further evaluation of airway, this was discussed with primary medicine team Sarai Lucero NP 7. Continue medical management per primary medical team Thank you for this consultation, we will continue to follow. Dr. Justin James I agree with the dictator's note, documented as a scribe by Katie Nieto.
--- NOTE | 2022-12-12 15:49 | CT ---
EXAMINATION TYPE: CT facial bones wo con DATE OF EXAM: 12/12/2022 COMPARISON: None HISTORY: Elevated INR, bruising, swelling, difficulty swallowing CT DLP: 613.8 mGycm CONTRAST: 0 mL of Isovue 300 The paranasal sinuses are examined in the axial plane at 2 mm thick sections. Reconstructed images i n the coronal plane were obtained. There is significant dental amalgam scatter artifact. The maxillary sinuses are clear. The ethmoid air cells are clear. The sphenoid sinuses are clear. The frontal sinuses are clear. The septum is evaluated. There is septal deviation to the left. The ostiomeatal units are patent. There is some mild soft tissue swelling over the left frontal region. Nasal bones are intact. Greater wings of the sphenoid are intact. Zygomatic arches are intact. Maxill jerrod spine is normal. IMPRESSIONS: 1. No acute osseous abnormality facial bones. 2. Mild soft tissue swelling frontal region
--- NOTE | 2022-12-12 15:57 | CT ---
EXAMINATION TYPE: CT neck chest without con DATE OF EXAM: 12/12/2022 COMPARISON: None HISTORY: Elevated INR, bruising, swelling, difficulty swallowing CT DLP: 1086.7 mGycm CONTRAST: Patient injected with 0 mL of Isovue 300. TECHNIQUE: Axial images at 3 mm thick sections. Reconstructed images in the coronal plane and sagitt al plane are reviewed. FINDINGS: Limited CT sections are obtained the lung apices. Some mild patchy focal traits maybe in t he lung apices. Consider atypical pneumonia. CT neck: The torus tubarius and fossa of Rosenmuller are normal. Certified [employer] spaces are normal. Para nasal sinuses and mastoid air cells are clear. Parotid glands appear normal and symmetrical. Right submandibular gland appears unremarkable. Left benson bmandibular gland is somewhat prominent. There are scattered small lymph node adjacent to the left benson bmandibular gland and parotid gland. Enlarged lymphadenopathy is not identified. There may be some in flammatory change adjacent to the prominent left submandibular gland. Consider sialadenitis. Paraphar yngeal spaces are normal. No enlarged adenopathy evident. There are multiple scattered small lymph n odes more so on the left side. There is asymmetry of the left hypopharynx with fullness effacing the lower hypopharynx. Direct visua lization is recommended. Infection and underlying mass could be considered. Underlying abscess is not identified on these images. Vocal cord level appear symmetrical. Thyroid as visualized is normal. Osseous structures are normal. Certified [employer] spaces are normal. IMPRESSIONS: 1. Enlarged right submandibular gland with adjacent inflammatory changes. Correlate for sialadenitis. Some enlarged left parotid gland may be present. EXAMINATION TYPE: CT neck chest without con DATE OF EXAM: 12/12/2022 COMPARISON: None HISTORY: Elevated INR, bruising, swelling, difficulty swallowing CT DLP: 1086.7 mGycm, Automated exposure control for dose reduction was used. CONTRAST: Performed injected with 0 mL of Isovue 300. TECHNIQUE: Axial images were obtained at 5 mm thick sections. Reconstructed images are reviewed on [facility] computer in the coronal plane. FINDINGS: Portion of the thyroid visualized is normal. There are multiple faint areas of pneumonitis throughout the bilateral lung joseph. These are patchy. Consider atypical pneumonia within the differential. No enlarged mediastinal or hilar adenopathy is evident. The ascending aorta diameter at the level o f the main pulmonary artery is 3.5 cm. The main pulmonary artery diameter at the bifurcation is 2.6 cm. Small hiatal hernia is present. Limited CT sections are obtained through the upper abdomen. Abdomen is essentially unremarkable. IMPRESSIONS: 1. Scattered patchy areas of pneumonitis in bilateral lungs. Correlate for atypical pneumonia. 2. Small hiatal hernia
[2022-12-12 16:18] LABS: MCH 28.2 pg (25.0-35.0); MCHC 33.2 g/dL (31.0-37.0); MCV 84.9 fL (80.0-100.0); Mean Platelet Volume 9.3; Platelet Count 209 k/uL (150-450); RBC 4.24 m/uL (3.80-5.40); WBC 6.7 k/uL (3.8-10.6)
[2022-12-12] MEDS ORDERED: clonazePAM 1 MG TAB PO SCH (21:00)
[2022-12-12] MEDS ORDERED: ATORVASTATIN 20 MG TAB PO SCH (21:00)
--- NOTE | 2022-12-13 03:53 | CONS ---
CONSULTATION REASON FOR CONSULTATION: Dysphagia. HISTORY OF PRESENT ILLNESS: This is a 67-year-old white female, who presented to the ER on 12/10/2022, although she was symptomatic with some bruising on 12/09/2022, and stopped her Coumadin at that time. She has been on Coumadin for over 20 years for a cardiac valve replacement. On 12/10, she had elevated INR, had vitamin K and was discharged. She developed bruising on her arms and under her tongue yesterday and had some throat swelling feeling with dysphagia and felt some swelling in the throat and therefore came back to the ER for further evaluation. She was able to drink liquids and had no pain, but felt restriction in her throat. Her INR 12/11 nearly at midnight was still over 10. She was therefore admitted. Due to her dysphagia, she had GI consult, who felt that this was not esophageal in nature, and then ENT was consulted. Soft tissue neck x-ray was negative, but she did have CT this afternoon, which showed some prominence of the left submandibular gland, but more so asymmetry of left hypopharynx with fullness and direct visualization recommended. She had noticed bruising under her tongue and of the left side of the tongue which was actually worse 2 days ago and has improved. She is having no respiratory difficulty at this point, but still has some dysphagia, although again no pain with swallowing. PAST MEDICAL HISTORY: Positive for atrial fibrillation, blood disorder, heart failure, TIA, osteoarthritis, stroke, arthritis. 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 SOCIAL HISTORY: Did not smoke. Drinks alcohol rarely. FAMILY HISTORY: Noncontributory. REVIEW OF SYSTEMS: Negative other than on HPI. MEDICATIONS ON ADMISSION: 1. Coumadin. 2. Tramadol. 3. Lanoxin. 4. Crestor. 5. Klonopin. ALLERGIES: To Betadine and meat ingestion. PHYSICAL EXAMINATION: VITAL SIGNS: Reviewed. Good oxygen saturation. Respiratory rate is 18, temperature is afebrile. GENERAL: She is a well-developed adult white female, in no acute distress. Her voice is normal. There is no fullness to the voice. There is no stridor or hoarseness. HEENT: Head, normocephalic, atraumatic. Ears, bilateral ear canals are clear. Tympanic membranes are unremarkable and mobile. Nose shows minimal dryness bilaterally. No epistaxis noted. The nasopharynx shows status post adenoidectomy. Oral cavity and oropharynx shows status post tonsillectomy sublingual, purple discoloration, but no particular swelling. There is some mild ecchymosis, which is purple. Submucosal left side of the tongue, especially ventral surface. The oropharynx is unremarkable otherwise. Hypopharynx and larynx exam shows hematoma, which is purple, smooth, rounded, left lateral hypopharynx protruding approximately 1.5 to 2 cm. Vocal cords are however well visualized beyond this and are mobile bilaterally. NECK: Unremarkable. Soft, nontender, and no adenopathy noted. ASSESSMENT: Sublingual and left hypopharyngeal hematoma secondary to coagulopathy. PLAN: The patient appears stable at this point. I discussed the findings with the patient in detail today. She stated that her INR had decreased to 4.9. Her coagulopathy will need to be corrected, which is in the works already. There is no particular indication for any surgical intervention at this point, including any hematoma evacuation or need for airway intervention whether this would be intubation or tracheostomy at this point. This will likely gradually, but slowly subside. We would continue a liquid to soft diet as tolerated. If the throat symptoms worsen, particularly the respiratory difficulty or dysphagia worsens, please contact me for re-evaluation. MMODL / IJN: [id number] /
--- NOTE | 2022-12-13 03:55 | PCN ---
PROCEDURE NOTE PREOPERATIVE DIAGNOSES: Hypopharyngeal swelling with dysphagia. POSTOPERATIVE DIAGNOSES: Hypopharyngeal swelling with dysphagia. PROCEDURE PERFORMED: Flexible laryngoscopy. ANESTHESIA: None. COMPLICATIONS: None. ESTIMATED BLOOD LOSS: None. FINDINGS: See history and physical exam findings. DESCRIPTION OF PROCEDURE: The patient was in her hospital chair in an upright position. Informed consent was obtained. Flexible laryngoscopy was performed through the right nasal cavity with systematic evaluation of the right nasal cavity, nasopharynx, oropharynx, hypopharynx and larynx with the above-noted findings. The laryngoscope was then withdrawn. The patient tolerated this well with no complications. MMODL / IJN: [id number] /
--- NOTE | 2022-12-13 06:29 | PN ---
PROGRESS NOTE DATE OF SERVICE: 12/12/2022 ADDENDUM: HISTORY OF PRESENT ILLNESS: This is a 67-year-old woman who was admitted with Coumadin coagulopathy, also had significant difficulties around the mouth and throat. The patient also ate some hard toast, possibly some injury resulting from that. The CAT scan of the neck and chest showed possible pneumonitis process with sialadenitis. I have started the patient on empiric antibiotics. Recommended emergent consultation with Infectious Disease as well as ENT. Overall prognosis guarded. Vitamin K also has been given and guarded prognosis. Further recommendations to follow. I would also recommend Cardiology consultation. This patient required definitely full inpatient admit lasting for more than 2 midnights rather than observation to evaluate and treat the above-mentioned multiple complex medical issues Coumadin coagulopathy. MMODL / IJN: [id number] / MTDD
[2022-12-13 06:48] VITALS: RESP 16; TEMP 97.8
[2022-12-13] MEDS: methylPREDNISolone SOD SUCCI 40 MG/ML 1 ML VIAL IV SCH (08:30)
[2022-12-13] MEDS: SODIUM CHLORIDE 0.9% 1,000 ML IV SCH (08:33)
[2022-12-13] MEDS ORDERED: DIGOXIN 125 MCG TAB PO SCH (09:00)
[2022-12-13 09:11] LABS: Basophils % (A) 0 %; Eosinophils % (A) 0 %; HGB 12.6 gm/dL (11.4-16.0); Lymphocytes # (A) 1.4 k/uL (1.0-4.8); Lymphocytes % (A) 35 %; MCH 28.3 pg (25.0-35.0); MCHC 33.3 g/dL (31.0-37.0); MCV 84.8 fL (80.0-100.0); Mean Platelet Volume 9.1; Monocytes # (A) 0.3 k/uL (0-1.0); Monocytes % (A) 8 %; Neutrophils # (A) 2.1 k/uL (1.3-7.7); Neutrophils % (A) 54 %; Platelet Count 247 k/uL (150-450); RBC 4.48 m/uL (3.80-5.40)
[2022-12-13 09:19] LABS: INR 2.2 (<1.2); Prothrombin Time 21.5 sec (9.0-12.0)
[2022-12-13 09:22] LABS: ALT 25 U/L (4-34); AST 28 U/L (14-36); African American GFR (CKD) >90 (>60 ml/min/1.73 sqM); Albumin 4.4 g/dL (3.5-5.0); Alkaline Phosphatase 74 U/L (38-126); Anion Gap 9 mmol/L; Blood Urea Nitrogen 14 mg/dL (7-17); Carbon Dioxide 25 mmol/L (22-30); Chloride 105 mmol/L (98-107); Glucose 198 mg/dL (74-99); Non-African American GFR(CKD) >90 (>60 ml/min/1.73 sqM); Potassium 4.4 mmol/L (3.5-5.1); Sodium 139 mmol/L (137-145); Total Bilirubin 4.5 mg/dL (0.2-1.3); Total Protein 7.2 g/dL (6.3-8.2)
--- NOTE | 2022-12-13 11:26 | P.PN ---
Subjective Progress Note Date: 12/13/22 Principal diagnosis: Dysphagia Patient is a 67-year-old female who presented to the emergency department for elevated INR and concerns for difficulty with breathing, swallowing and bruising. She has a past medical history including coronary artery disease status post pacemaker and cardiac ablation, atrial fibrillation on Coumadin, heart valve tumor, and TIA. Patient states she presented to the emergency department with concerns for abnormal INR from her doctor's office on 12/10/2022 she was known to have a INR greater than 10 and she reportedly was given vitamin K and sent home to follow-up with her PCP. Early this morning she woke up and she states that she was having some difficulty with swallowing noticed that she had a hematoma on her tongue and frenulum, as well as bruising and swelling along her neck and arms. Patient states on she has having difficulty swallowing she feels that she has swelling in the back of her throat, however denies any discomfort with actually swallowing and esophageal area no epigastric pain. She's had no previous history of any dysphasia, GERD, or peptic ulcer disease. Currently she is on a clear liquid diet and having even some difficulty getting that down her throat. Patient also states urine is bloody. Denies any blood in her stool or rectal bleeding. Admitting labs WBC 7.2 hemoglobin 12.8 hematocrit 37 platelet count 216,000 PT 113 INR greater than 10 PTT 80.6 sodium 138 potassium 4.1 BUN 13 creatinine 0.7 total bilirubin 3.8 AST 32 ALT 25 alkaline phosphatase 81 12/13/2022: Patient seen and examined today as a follow-up for dysphagia. Patient had come in yesterday with elevated INR greater than 10, was given vitamin K with a repeat to 4.9. CT neck chest without contrast performed yesterday reporting scattered patchy areas of pneumonitis in bilateral lungs. Correlate for atypical pneumonia. Small hiatal hernia. Enlarged right submandibular gland with adjacent inflammatory changes. Correlate for si aladenitis, some enlarged left parotid gland may be present. on CT facial bones reported no acute osseous abnormality, mild soft tissue swelling frontal region.Patient was seen by ENT yesterday and underwent flexible laryngoscopy with findings of hypopharyngeal swelling with dysphagia. Patient states his swelling is improved today. Still feels that she has some swelling at the back of the throat and has the urge to cough. She was able to eat eggs and yogurt this morning without any difficulty. P labs today WBC 4.0 hemoglobin 12.6 platelet count 247,000 INR 2.2. Total bilirubin 4.5 AST 28 ALT is 25 alkaline phosphatase 74 Objective - Vital Signs Vital signs: Vital Signs Temp 97.8 F 12/13/22 04:00 Pulse 86 12/13/22 08:00 Resp 16 12/13/22 08:00 BP 134/71 12/13/22 08:00 Pulse Ox 99 12/13/22 08:00 FiO2 Intake & Output 12/12/22 12/13/22 12/13/22 18:59 06:59 18:59 Intake Total 240 358 Balance 240 358 Weight 87.997 kg Intake: Oral 240 358 - Exam General appearance: The patient is alert, oriented, appears in no acute distress . HET: Head is normocephalic and atraumatic. Conjunctiva pink. Sclera anicteric. Neck: Supple. Ecchymosis along anterior aspect of neck/throat region. Trachea midline. Abdomen: Soft, nontender, nondistended with bowel sounds. No guarding or rigidity. Skin: No rashes. No jaundice. Bilateral upper extremities with swelling and ecchymosis. Extremities: Normal skin color and turgor. No pedal edema. Neurological: No focal deficits. Alert and oriented x3. - Labs CBC & Chem 7: 12/13/22 08:38 12/13/22 08:38 Labs: Abnormal Lab Results - Last 24 Hours (Table) 12/12/22 Range/Units 09:40 PT 48.1 H (9.0-12.0) sec INR 4.9 H (<1.2) Assessment and Plan (1) Difficulty swallowing Narrative/Plan: 67-year-old female with history of coronary artery disease on Coumadin for atrial fibrillation presented to the emergency department with concerns for brui sing and difficulty with swallowing and feeling as though her throat is swollen and was noted to have INR greater than 10. Patient was seen at the emergency department just today before I can with a INR greater than 10 was given Coumadin and told to follow-up with her primary care provider. Patient was concerned late last night with having significant bruising on her upper extremities, her tongue and noticing bleeding clot under her tongue as well as having difficulty with swallowing and feeling as though her throat with swollen. She came to the emergency department noted to have a INR greater than 10, with her last dose of Coumadin on Monday. Patient was treated with vitamin K and gastroenterology was consulted for dysphagia. Patient's symptoms do not appear consistent with esophageal dysphagia or stricture. Patient's symptoms seem to be coming from the back of the throat, she is even having difficulty with thin liquids. Patient noted to have hematoma on tongue and frenulum unable to clearly see the back of the throat however concern for further swelling and/or hematoma. This was discussed with the primary medicine team with recommendation for ENT consultation and further evaluation of airway. Patient evaluated by ENT withflexible laryngoscopy with reported hypopharyngeal swelling.symptoms improved from patient. She has on a soft diet with aches and yogurt without any difficulty swallowing. States breathing is better.no plans on endoscopic evaluation at this time. Current Visit: Yes Status: Acute Code(s): R13.10 - DYSPHAGIA, UNSPECIFIED SNOMED Code(s): 35929594 (2) Swelling of throat Current Visit: Yes Status: Acute Code(s): J39.2 - OTHER DISEASES OF PHARYNX SNOMED Code(s): 4121106 (3) Hematoma Narrative/Plan: Patient with hematoma on tongue and frenulum below tongue Current Visit: Yes Status: Acute Code(s): T14.8XXA - OTHER INJURY OF UNSPECIFIED BODY REGION, INITIAL ENCOUNTER SNOMED Code(s): 251744481 (4) Coagulopathy Current Visit: No Status: Acute Code(s): D68.9 - COAGULATION DEFECT, UNSPECIFIED SNOMED Code(s): 50414267 Plan: 1. Continue symptomatic and supportive care 2. Protonix 40 mg IV push for GI prophylaxis 3. ENT on consultation, patient underwent flexible laryngoscopy 4. No planes on endoscopic evaluation or further GI workup 5. Recommend soft diet 6. Continue medical management per primary medical team Thank you for this consultation, we will sign off at this time. Dr. Justin James I agree with the dictator's note, documented as a scribe by Katie Nieto.
[2022-12-13 12:08] VITALS: BP 127/70; PULSE 69
--- NOTE | 2022-12-13 14:21 | P.CRDCN ---
History of Present Illness Consult date: 12/13/22 Consult reason: atrial fibrillation History of present illness: History of present illness: This is a 67-year-old female patient of Dr. Oneil with past medical history of paroxysmal atrial fibrillation on Coumadin, sick sinus syndrome status post dual-chamber pacemaker, atrial myxoma status post resection, mitral angioplasty ring, history of TIA in association with atrial myxoma. We have been asked to evaluate the patient for atrial fibrillation. Patient gives history that she was here on 12/10 because her Coumadin was high and she had a hematoma under her tongue, dark urine and bruising on her arms. She was seen in the emergency cent er and found to have an INR greater than 10. Patient was given vitamin K 2.5 mg oral once and was discharged home. She then returned on 12/12. She states that she felt her throat was swelling and she couldn't breeze. She was again found to have an INR of greater than 10 and is status post vitamin K 5 mg oral with repeat INR 4.9. She was admitted to the cardiac stepdown unit and we've been asked to evaluate her for atrial fibrillation. Patient has been seen by ENT status post flexible laryngoscopy finding hypo-pharyngeal swelling and dysphagia. Repeat INR this morning is 2.2. EKG sinus rhythm Chest x-ray: Soft tissue x-rays of the neck normal CT facial bones no acute osseous abnormality. Mild soft tissue swelling frontal region. CT neck chest scattered patchy areas of pneumonitis in bilateral lungs. Correlate for atypical pneumonia. Small hiatal hernia. WBC 4, hemoglobin 12.6, platelet count 247. INR now 2.2. Electrolytes and renal function normal. Calcium 11, total bilirubin 4.5 over function tests otherwise normal. Troponin negative 1 Home cardiac medications: Coumadin 5 mg on Monday, 2.5 on Monday, digoxin 125 g daily, Crestor 10 mg at bedtime Review Of Systems: At the time of my evaluation: Constitutional: No fever, no chills. No weakness, fatigue or lethargy. EENT: No headache. No dizziness. Lungs: No shortness of breath, cough, no sputum production. No wheezing. Cardiovascular: No chest pain, no lower extremity edema. No palpitations. No paroxysmal nocturnal dyspnea. No orthopnea. No lightheadedness or dizziness. No syncopal episodes. Abdominal: No abdominal pain. No nausea, vomiting. No diarrhea. No constipation. No bloody or tarry stools. Genitourinary: No dysuria.. No urinary retention. Musculoskeletal: No myalgias. No muscle weakness, no frequent falls. No back pain. No neck pain. Integumentary: No wounds. No rash. Noted unusual bruising. Neurologic: No aphasia. No facial droop. No change in mentation. No head injury. No headache. Physical examination: Gen: This is a [ ] VS: reviewed HEENT: Head is atraumatic, normocephalic. Pupils equal, round. Sclerae is anicteric. NECK: Supple. No JVD. . LUNGS: Clear to auscultation. No wheezes or rhonchi. No intercostal retracti ons. HEART: Regular rate and rhythm. No murmur. ABDOMEN: Soft No tenderness. EXTREMITIES: No pedal edema. No calf tenderness. NEUROLOGICAL: Patient is awake, alert and oriented x3. Assessment: Hypercoagulopathy Paroxysmal atrial fibrillation 6 sinus syndrome status post dual-chamber pacemaker Atrial myxoma status post resection Mitral angioplasty ring History of TIA in association with atrial myxoma Plan: Discontinue atorvastatin, digoxin and antibiotics INR to be managed and Coumadin dosing addressed by patient's PCP only Patient is cleared for discharge from cardiology may follow-up in the office as previously scheduled. Thank you kindly for this consultation. Nurse practitioner note has been reviewed, I agree with documented findings and plan of care. Patient was seen and examined. 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 Past Anesthesia/Blood Transfusion Reactions: No Reported Reaction, Motion Sickness Additional Past Anesthesia/Blood Transfusion Reaction / Comment(s): MOTION SICKNESS IF READING IN CAR. Type of Cardiac Device: Permanent Pacemaker Device Placement Date:: 07/11/16-[employer] Past Psychological History: No Psychological Hx Reported Smoking Status: Never smoker Past Alcohol Use History: Rare Past Drug Use History: None Reported - Past Family History Father Family Medical History: Cancer Additional Family Medical History / Comment(s): LYMPHOMA Medications and Allergies Home Medications Medication Instructions Recorded Confirmed Type clonazePAM [KlonoPIN] 1 mg PO HS 12/12/22 12/12/22 History predniSONE 10 mg PO DIRECTED #20 tab 12/13/22 Rx Allergies Allergy/AdvReac Type Severity Reaction Status Date / Time povidone-iodine Allergy Unknown Rash/Hives, Verified 12/12/22 08:01 [From Betadine] Swelling soap [From Betadine] Allergy Unknown Rash/Hives, Verified 12/12/22 08:01 Swelling meat AdvReac Does not Uncoded 12/12/22 08:01 eat meat Physical Exam Vitals: Vital Signs Temp Pulse Pulse Resp BP Pulse Ox 12/13/22 08:00 86 16 134/71 99 12/13/22 04:00 97.8 F 66 16 116/67 98 12/12/22 23:49 67 17 120/67 98 12/12/22 20:00 98 F 62 18 116/59 97 12/12/22 15:45 72 17 125/67 97 12/12/22 15:09 88 18 96 12/12/22 14:06 80 18 100 12/12/22 12:00 72 18 96 Intake and Output 12/12/22 12/13/22 12/13/22 22:59 06:59 14:59 Intake Total 240 358 Balance 240 358 Intake: Oral 240 358 Other: Weight 87.997 kg Results 12/13/22 08:38 12/13/22 08:38 Cardiac Enzymes 12/13/22 Range/Units 08:38 AST 28 (14-36) U/L Coagulation 12/12/22 12/13/22 Range/Units 09:40 08:38 PT 48.1 H 21.5 H (9.0-12.0) sec CBC 12/12/22 12/13/22 Range/Units 15:45 08:38 WBC 6.7 4.0 (3.8-10.6) k/uL RBC 4.24 4.48 (3.80-5.40) m/uL Hgb 12.0 12.6 (11.4-16.0) gm/dL Hct 36.0 38.0 (34.0-46.0) % Plt Count 209 247 (150-450) k/uL Comprehensive Metabolic Panel 12/13/22 Range/Units 08:38 Sodium 139 (137-145) mmol/L Potassium 4.4 (3.5-5.1) mmol/L Chloride 105 (98-107) mmol/L Carbon Dioxide 25 (22-30) mmol/L BUN 14 (7-17) mg/dL Creatinine 0.67 (0.52-1.04) mg/dL Glucose 198 H (74-99) mg/dL Calcium 11.0 H (8.4-10.2) mg/dL AST 28 (14-36) U/L ALT 25 (4-34) U/L Alkaline Phosphatase 74 (38-126) U/L Total Protein 7.2 (6.3-8.2) g/dL Albumin 4.4 (3.5-5.0) g/dL Current Medications Generic Name Dose Route Start Last Admin Trade Name Freq PRN Reason Stop Dose Admin Atorvastatin Calcium 20 mg 12/12/22 21:00 12/12/22 22:05 Atorvastatin 20 Mg Tab PO Not Given HS ALISSA Clonazepam 1 mg 12/12/22 21:00 12/12/22 22:05 Clonazepam 1 Mg Tab PO Not Given HS [facility] Digoxin 125 mcg 12/13/22 09:00 12/13/22 08:29 Digoxin 125 Mcg Tab PO Not Given DAILY [facility] Sodium Chloride 1,000 mls @ 50 mls/hr 12/12/22 13:00 12/13/22 08:33 Saline 0.9% IV Not Given .Q20H [facility] Ceftriaxone Sodium 1 gm/ 50 mls @ 100 mls/hr 12/12/22 16:30 12/13/22 08:29 Sodium Chloride IVPB Not Given Q24HR [facility] Protocol Methylprednisolone Sodium Succinate 40 mg 12/12/22 12:47 12/13/22 08:30 Methylprednisolone Sod Succi 40 Mg/Ml 1 Ml Vial IV 12/14/22 09:00 40 mg Q8HR ALISSA Administration Naloxone HCl 0.2 mg 12/12/22 01:21 Naloxone 0.4 Mg/Ml 1 Ml Vial IV Q2M PRN Opioid Reversal Tramadol HCl 50 mg 12/12/22 11:22 Tramadol 50 Mg Tab PO QID PRN Pain Intake and Output 12/12/22 12/13/22 12/13/22 22:59 06:59 14:59 Intake Total 240 358 Balance 240 358 Intake: Oral 240 358 Other: Weight 87.997 kg 12/13/22 08:38 12/13/22 08:38
--- NOTE | 2022-12-13 19:33 | P.DS ---
Providers Date of admission: 12/12/22 15:19 Expected date of discharge: 12/13/22 Attending physician: Steven Villasenor Consults: 12/12/22 11:22 Consult Physician Routine Consulting Provider: Georges James Consult Reason/Comments: afib Do you want consulting provider notified?: Yes 12/12/22 11:23 Consult Physician Routine Consulting Provider: Omayra James Consult Reason/Comments: dysphagia Do you want consulting provider notified?: Yes 12/12/22 14:51 Consult Physician Stat Consulting Provider: Lazaro Lobo Consult Reason/Comments: difficulty swallowing, throat swelling, elevated INR Do you want consulting provider notified?: Yes 12/12/22 16:12 Consult Physician Routine Consulting Provider: German Cristina Consult Reason/Comments: pneumonia, sialdenitis Do you want consulting provider notified?: Yes Primary care physician: Wil Friedman [facility] Course: Final diagnosis Coumadin coagulopathy Throat swelling and discomfort secondary to upper and lower palate hematomas due to coagulopathy Atrial fibrillation history Congestive heart failure history, unknown EF History of CVA/TIA Obesity with a BMI of 33.3 Discharge disposition Patient is being discharged in a stable condition with guarded prognosis to home. Patient will follow-up with Dr. Friedman in the outpatient setting upon discharge. Patient reports she has a follow-up appointment with him tomorrow afternoon. Patient has been instructed to hold medications until follow-up in the a.m. per cardiology. Total time taken is greater than 35 minutes. Hospital course This is a 67-year-old female who was recently admitted with coagulopathy with an INR above 10 due to Coumadin as patient takes for A. fib. Patient had significant hematoma was found in the mouth along with all over the body and was treated with vitamin K. Patient initially presented to the emergency department one day prior and was given vitamin K and sent home. Patient had worsening symptoms and came again for further evaluation. Patient was evaluated by cardiology along with GI as patient had throat irritation and pain in the mouth and was noted to have large hematomas and was emergently evaluated by ENT. Patient has been instructed to hold medications including Coumadin and has follow-up appointment with Dr. Contreras. Patient was evaluated briefly by infectious disease with concerns of a pneumonia and patient is refusing to take antibiotics. Patient will discuss this with primary care provider. Please refer to other consultation notes for further HPI. Currently no reports of chest pain, shortness of breath, or palpitations. Patient is afebrile. No reports of nausea or vomiting and patient is tolerating diet. Patient instructed to continue soft foods. Patient will be discharged home today. Guarded prognosis. High risk for readmission given significance of clinical condition. Physical exam: Gen: This is a 67-year-old female who is awake, alert and oriented 3, well-developed, well-nourished, obese HEENT: Head is atraumatic, normocephalic. Pupils equal, round. Sclerae is anicteric. NECK: Supple. No JVD. No lymphadenopathy. No thyromegaly. LUNGS: Clear to auscultation. No wheezes or rhonchi. No intercostal retractions. HEART: S1, S2 are muffled ABDOMEN: Soft. Bowel sounds are present. No masses. No tenderness. EXTREMITIES: No pedal edema. No calf tenderness. NEUROLOGICAL: Patient is awake, alert and oriented x3. Cranial nerves 2 through 12 are grossly intact. skin: Multiple levels of bruising and ecchymosis noted on face, neck, upper extremities, abdomen Please refer to medication reconciliation sheet for a list of medications. The impression and plan of care has been dictated by Sarai Lucero, Nurse Practitioner as directed. Dr. Hamilton MD I have performed a history and examination and MDM of this patient, discussed the same with the dictator, and agree with the dictator's assessment and plan as written ,documented as a scribe. Based on total visit time, I have performed more than 50% of the visit. Patient Condition at Discharge: Fair Plan - Discharge Summary Discharge Rx Participant: No New Discharge Prescriptions: New predniSONE 10 mg PO DIRECTED #20 tab Continue clonazePAM [KlonoPIN] 1 mg PO HS Discontinued Warfarin [Coumadin] 2.5 mg PO TUSA Warfarin [Coumadin] 5 mg PO SUMOWETHFR traMADol HCL [Ultram] 50 mg PO QID PRN PRN Reason: Pain Digoxin [Lanoxin] 125 mcg PO DAILY Rosuvastatin [Crestor] 10 mg PO HS Discharge Medication List clonazePAM [KlonoPIN] 1 mg PO HS 12/12/22 [History] predniSONE 10 mg PO DIRECTED #20 tab 12/13/22 [Rx] Follow up Appointment(s)/Referral(s): Wil Friedman MD [Primary Care Provider] - 1-2 days Patient Instructions/Handouts: Elevated INR (DC) Activity/Diet/Wound Care/Special Instructions: Recommendations from Dr. Oneil: Hold atorvastatin, digoxin, antibiotics. Patient's primary care physician will dose Coumadin. Activity Limited until follow-up Follow-up with her primary care provider tomorrow as scheduled appointment Discharge Disposition: HOME SELF-CARE
== END 2022-12-13 14:16 | disposition home or self-care (01) | DRG 813 ==
LOC: EC 23:23 → 3SCARD 12-12 01:23 → OBSVTOIN 12-12 15:19
PROVIDERS: ADMIT Hospitalist; ATTEND Hospitalist
DX: D68.9 Coagulation defect, unspecified (principal); I69.354 Hemiplegia and hemiparesis following cerebral infarction affecting left non-dominant side; E66.9 Obesity, unspecified; I11.0 Hypertensive heart disease with heart failure; I49.5 Sick sinus syndrome; I25.10 Atherosclerotic heart disease of native coronary artery without angina pectoris; I48.0 Paroxysmal atrial fibrillation; I50.9 Heart failure, unspecified; G43.909 Migraine, unspecified, not intractable, without status migrainosus; M19.90 Unspecified osteoarthritis, unspecified site; K44.9 Diaphragmatic hernia without obstruction or gangrene; M17.0 Bilateral primary osteoarthritis of knee; M50.30 Other cervical disc degeneration, unspecified cervical region; R13.10 Dysphagia, unspecified; T45.515A Adverse effect of anticoagulants, initial encounter; R31.9 Hematuria, unspecified; Z95.2 Presence of prosthetic heart valve; Z68.33 Body mass index [BMI] 33.0-33.9, adult; M79.81 Nontraumatic hematoma of soft tissue; Z79.01 Long term (current) use of anticoagulants; Z79.899 Other long term (current) drug therapy; Z95.0 Presence of cardiac pacemaker; Z28.21 Immunization not carried out because of patient refusal; Z88.8 Allergy status to other drugs, medicaments and biological substances
CPT/HCPCS: 36415; 70360; 70486; 70490; 71250; 80053; 81001; 84484; 85025; 85027; 85610; 85730; 93005; 96361; 96374; 99285

== ENCOUNTER 2024-08-20 13:04 | Day surgery (SDC) | payer MEDICARE, OTHER ==
[~2024-08-20 13:04] MED LIST changes: +ALPRAZolam 0.25 MG TAB PO PRN; +ALPRAZolam 0.5 MG TAB PO PRN; +HEPARIN SODIUM,PORCINE (1 ML) 2,500 UNIT in SODIUM CHLORIDE 0.9% 250 ML IRRIGATION PRN; +HEPARIN SODIUM,PORCINE 10,000 UNIT in SODIUM CHLORIDE 0.9% 1,000 ML IRRIGATION PRN; +NITROGLYCERIN SL TABS 0.4 MG TAB SUBLINGUAL PRN; -SODIUM CHLORIDE 0.9% 1,000 ML IV SCH
[2024-08-20] MEDS: IV FLUID CONTINUATION 1,000 ML IV ONE (13:30)
[2024-08-20 13:42] VITALS: RESP 16
[2024-08-20 13:59] LABS: INR 3.2 (<1.2); Prothrombin Time 31.8 sec (10.0-12.5)
[2024-08-20 14:07] LABS: ALT 27 U/L (4-34); AST 28 U/L (14-36); African American GFR (CKD) 89 (>60 ml/min/1.73 sqM); Albumin 4.2 g/dL (3.5-5.0); Alkaline Phosphatase 85 U/L (38-126); Anion Gap 6 mmol/L; Blood Urea Nitrogen 15 mg/dL (7-17); Calcium 11.1 mg/dL (8.4-10.2); Carbon Dioxide 28 mmol/L (22-30); Chloride 106 mmol/L (98-107); Glucose 97 mg/dL (74-99); Non-African American GFR(CKD) 77 (>60 ml/min/1.73 sqM); Potassium 4.2 mmol/L (3.5-5.1); Sodium 140 mmol/L (137-145); Total Bilirubin 1.5 mg/dL (0.2-1.3); Total Protein 7.1 g/dL (6.3-8.2)
[2024-08-20] MEDS: MIDAZOLAM 2 MG/2 ML VIAL IVP ONE (18:16)
[2024-08-20] MEDS: LIDOCAINE 1% INJ 10MG/ML (20 ML MDV) SQ ONE ×2 (18:20→18:21)
[2024-08-20 18:56] LABS: O2 Sat Blood Gas 70.6 %
[2024-08-20 18:58] LABS: O2 Sat Blood Gas 70.6 %
--- NOTE | 2024-08-20 18:58 | P.PCN ---
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 Written informed consent was obtained prior to the procedure. The right groin was prepped and draped as a protocol. 1% lidocaine was used for local anesthesia. Venous sheath was placed in the right femoral vein and via this balloon flotation catheter was placed in the right heart The PA pressure was 25/5 with a mean of 14 mmHg PA O2 saturation The wedge pressure was 12-13 mmHg, mean O2 saturation RV pressures 29/-2 with a mean of 80 mmHg O2 saturation RA pressures 4/3 with a mean of 1 mmHg Oxygen saturation Impression Pulmonary capillary wedge pressure at the upper limits of normal of 12 to 13 mmHg Normal PA pressures normal RVSP and normal RA pressures Patient underwent EP procedure under conscious sedation/moderate sedation, monitoring of the level of consciousness and physiologic parameters including but not limited to vital signs and oxygenation. Patient tolerated the procedure well without any acute complications. 22 minutes conscious sedation time and monitoring
[2024-08-20 19:00] LABS: O2 Sat Blood Gas 67.7 %
[2024-08-20 19:02] LABS: O2 Sat Blood Gas 69.3 %
[2024-08-20] MEDS ORDERED: traMADol 50 MG TAB PO PRN (19:03)
--- NOTE | 2024-08-20 19:07 | P.PN ---
Progress Note - Text Discharge home by 9:30 PM today 2 hours of bedrest after Vascade closure which was completed at 6:45 PM today No changes in medications Follow-up with me in 1 to 2 weeks
--- NOTE | 2024-08-20 19:13 | P.PCN ---
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 Written informed consent was obtained prior to the procedure. The right groin was prepped and draped as a protocol. 1% lidocaine was used for local anesthesia. Venous sheath was placed in the right femoral vein and via this balloon flotation catheter was placed in the right heart The PA pressure was 25/5 with a mean of 14 mmHg PA O2 saturation = 67.7%, incomplete occlusion, small balloon The wedge pressure was 12-13 mmHg, mean O2 saturation = 70.6 RV pressures 29/-2 with a mean of 80 mmHg O2 saturation RA is 69.3% RA pressures 4/3 with a mean of 1 mmHg Oxygen saturation 70.6 Impression Pulmonary capillary wedge pressure at the upper limits of normal of 12 to 13 mmHg Normal PA pressures normal RVSP and normal RA pressures Patient underwent EP procedure under conscious sedation/moderate sedation, monitoring of the level of consciousness and physiologic parameters including but not limited to vital signs and oxygenation. Patient tolerated the procedure well without any acute complications. 22 minutes conscious sedation time and monitoring
[2024-08-20] MEDS: ASPIRIN 325 MG TAB PO ONE (20:13)
[2024-08-20] MEDS: SODIUM CHLORIDE 0.9% 1,000 ML in EMPTY BAG 1 BAG IV SCH (20:14)
[2024-08-20] MEDS: ATORVASTATIN 20 MG TAB PO SCH (20:29)
[2024-08-20 22:18] VITALS: TEMP 98.7
[2024-08-20 22:28] VITALS: PULSE 55
[2024-08-20 22:30] VITALS: BP 110/60
== END 2024-08-20 22:09 | disposition home or self-care (01) ==
LOC: CATHEP 13:04 → 6NMEDSUR 18:50 → CATHEP 22:09
PROVIDERS: ATTEND Internal Medicine Clinical Cardiac Electrophysiology
DX: I34.2 Nonrheumatic mitral (valve) stenosis (principal); I51.7 Cardiomegaly; I48.0 Paroxysmal atrial fibrillation; Z95.0 Presence of cardiac pacemaker; I27.20 Pulmonary hypertension, unspecified; Z82.49 Family history of ischemic heart disease and other diseases of the circulatory system; Z91.041 Radiographic dye allergy status; Z79.899 Other long term (current) drug therapy
CPT/HCPCS: 93451; 80053; 85018; 84443; 82810; 85610; C1751; C1894; C1769; C1760; J2250; J0690; J2003

== ENCOUNTER 2024-08-27 16:54 | Inpatient (IN) | payer MEDICARE, OTHER ==
--- NOTE | 2024-08-27 17:14 | ED ---
General Adult HPI - General Source: patient, RN notes reviewed Mode of arrival: wheelchair Limitations: no limitations <Gertrudis Carter - Last Filed: 08/27/24 17:33> <Lamar Trotter - Last Filed: 09/04/24 13:01> - General Stated complaint: LEG SWELLING HEART CATH Time Seen by Provider: 08/27/24 17:14 - History of Present Illness Initial comments: Quick note: 69-year-old female presented to the ER for evaluation of right inner thigh swelling. Patient underwent cardiac catheterization with Dr. Stevenson on 08/20/24. Patient states last night she started to have extreme pain and noted swelling to right inner thigh. She attempted to contact his office outpatient but they instructed her to come to the ER for evaluation. Patient denying any other symptoms at this time. (Gertrudis Carter) 69-year-old female presents emergency department for right thigh swelling. Patient had cardiac catheterization by Dr. Oneil on the . This was a right heart cath from a right femoral vein approach patient noted that last n ight she started having some bleeding and swelling which worsened today. She is on Coumadin. She contacted the office and they recommended that she come to the emergency department for evaluation. Patient denies any trauma to the area. Denies any significant swelling or bruising in the days following the procedure. She denies any numbness, tingling or weakness to her extremity. No fevers. No other alleviating, precipitating or modifying factors (Lamar Trotter) - Related Data Home Medications Medication Instructions Recorded Confirmed clonazePAM [KlonoPIN] 0.5 mg PO HS 12/12/22 08/27/24 Rosuvastatin [Crestor] 10 mg PO HS 08/14/24 08/27/24 traMADol HCL 50 mg PO QID PRN 08/14/24 08/27/24 Previous Rx's Medication Instructions Recorded Ferrous Gluconate 324 mg PO DAILY #90 tablet 09/01/24 Metoprolol Tartrate [Lopressor] 12.5 mg PO BID #90 tab 09/01/24 Allergies Allergy/AdvReac Type Severity Reaction Status Date / Time povidone-iodine Allergy Unknown Rash/Hives, Verified 08/27/24 20:49 [From Betadine] Swelling soap [From Betadine] Allergy Unknown Rash/Hives, Verified 08/27/24 20:49 Swelling meat AdvReac Does not Uncoded 08/27/24 17:30 eat meat Review of Systems ROS Other: All systems not noted in ROS Statement are negative. <Gertrudis Carter - Last Filed: 08/27/24 17:33> ROS Other: All systems not noted in ROS Statement are negative. <LaneliasLamar George - Last Filed: 09/04/24 13:01> ROS Statement: Those systems with pertinent positive or pertinent negative responses have been documented in the HPI. 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 Past Anesthesia/Blood Transfusion Reactions: No Reported Reaction, Motion Sickness Additional Past Anesthesia/Blood Transfusion Reaction / Comment(s): MOTION SICKNESS IF READING IN CAR. Type of Cardiac Device: Permanent Pacemaker Device Placement Date:: 07/11/16-[employer] Smoking Status: Never smoker - Past Family History Father Family Medical History: Cancer Additional Family Medical History / Comment(s): LYMPHOMA <Gertrudis Carter - Last Filed: 08/27/24 17:33> General Exam <Gertrudis Carter - Last Filed: 08/27/24 17:33> General appearance: alert, in no apparent distress Head exam: Present: atraumatic, normocephalic, normal inspection Eye exam: Present: normal appearance, PERRL, EOMI. Absent: scleral icterus, conjunctival injection, periorbital swelling ENT exam: Present: normal exam, mucous membranes moist Neck exam: Present: normal inspection. Absent: tenderness, meningismus, lymphadenopathy Respiratory exam: Present: normal lung sounds bilaterally. Absent: respiratory distress, wheezes, rales, rhonchi, stridor Cardiovascular Exam: Present: regular rate, normal rhythm, normal heart sounds. Absent: systolic murmur, diastolic murmur, rubs, gallop, clicks GI/Abdominal exam: Present: soft, normal bowel sounds. Absent: distended, tenderness, guarding, rebound, rigid Extremities exam: Present: tenderness (Extreme ecchymosis and hematoma noted to the right proximal calf which appears to be expanding. 2+ DP and PT pulses. Compartments are still soft), normal capillary refill. Absent: pedal edema, joint swelling, calf tenderness Back exam: Present: normal inspection Neurological exam: Present: alert, oriented X3, CN II-XII intact Psychiatric exam: Present: normal affect, normal mood Skin exam: Present: warm, dry, intact, normal color. Absent: rash <Lamar Trotter - Last Filed: 09/04/24 13:01> - General Exam Comments Initial Comments: Visual Physical Exam Vital signs reviewed General: Well-appearing, nontoxic, no acute distress. Head: Normocephalic, atraumatic Eyes: PERRLA, EOMI ENT: Airway patent Chest: Nonlabored breathing Skin: No visual rash, normal skin tone Neuro: Alert and oriented 3 Musculoskeletal: No gross abnormalities (Gertruids Carter) Course Vital Signs 08/27/24 08/27/24 08/27/24 17:26 20:47 22:20 Temperature 98.2 F Pulse Rate 76 60 86 Respiratory 18 18 18 Rate Blood Pressure 89/49 114/70 90/50 O2 Sat by Pulse 99 97 96 Oximetry Medical Decision Making <Gertrudis Carter - Last Filed: 08/27/24 17:33> - Lab Data Result diagrams: 09/01/24 06:53 09/01/24 06:53 <Lamar Trotter - Last Filed: 09/04/24 13:01> - Medical Decision Making I performed the quick note portion of this chart. Electronically signed by Gretrudis Carter PA-C (Gertrudis Carter) Was pt. sent in by a medical professional or institution (VNEITA Morley, TIMBER INCISOR OPERATOR, urgent care, hospital, or jail...) When possible be specific @ -Sending from cardiology office Did you speak to anyone other than the patient for history (EMS, parent, family, police, friend...)? What history was obtained from this source @ -No Did you review nursing and triage notes (agree or disagree)? Why? @ -I reviewed and agree with nursing and triage notes Were old charts reviewed (outside hosp., previous admission, EMS record, old EKG, old radiological studies, urgent care reports/EKG's, jail records)? Report findings @ -I reviewed the heart cath from the Differential Diagnosis (chest pain, altered mental status, abdominal pain women, abdominal pain men, vaginal bleeding, weakness, fever, dyspnea, syncope, headache, dizziness, GI bleed, back pain, seizure, CVA, palpatations, mental health, musculoskeletal)? @ -Pseudoaneurysm, arterial bleed, venous bleed, subcutaneous hematoma EKG interpreted by me (3pts min.). @ -Not done X-rays interpreted by me (1pt min.). @ -None done CT interpreted by me (1pt min.). @ -Yes which demonstrates active extravasation of arterial contrast U/S interpreted by me (1pt. min.). @ -Yes which demonstrates large fluid collection with no definite pseudoaneurysm What testing was considered but not performed or refused? (CT, X-rays, U/S, labs)? Why? @ -None What meds were considered but not given or refused? Why? @ -None Did you discuss the management of the patient with other professionals (neto purdy i.e. , PA, TIMBER INCISOR OPERATOR, lab, RT, psych nurse, director of social media marketing, electrical laboratory technician, teacher, jailer/training officer, showcase trimmer)? Give summary @ -[I discussed the case with Dr. Alonso as well as Dr. Jones Was smoking cessation discussed for >3mins.? @ -No Was critical care preformed (if so, how long)? @ -Yes, 40 minutes Were there social determinants of health that impacted care today? How? (Homelessness, low income, unemployed, alcoholism, drug addiction, transportation, low edu. Level, literacy, decrease access to med. care, senior living, rehab)? @ -No Was there de-escalation of care discussed even if they declined (Discuss DNR or withdrawal of care, Hospice)? DNR status @ -No What co-morbidities impacted this encounter? (DM, HTN, Smoking, COPD, CAD, Cancer, CVA, ARF, Chemo, Hep., AIDS, mental health diagnosis, sleep apnea, morbid obesity)? @ -Pulmonary hypertension Was patient admitted / discharged? Hospital course, mention meds given and route, prescriptions, significant lab abnormalities, going to OR and other pertinent info. @ -Upon arrival patient seen and evaluated in bed 33. Thorough history and physical exam was performed. IV was established and laboratory studies are conducted. Patient was administered pain medications. Ultrasound was performed which demonstrates no pseudoaneurysm. I am still concerned as I do feel that the patient's hematoma is expanding. CT angiogram was performed of the right lower extremity which does demonstrate active extravasation. I did call and speak to Dr. Jones about this. He was agreeable to taking the patient to the [facility] P[facility] Super[facility]. Did recommend [facility]. I also ordered 2 units of blood. Blood products are not ready before patient is rolled up to [facility] P[facility] and therefore blood products will be directed up to them. Patient was agreeable to admission. I did speak with Dr. Munroe for the admission Undiagnosed new problem with uncertain prognosis? @ -No Drug Therapy requiring intensive monitoring for toxicity (Heparin, Nitro, Insulin, Cardizem)? @ -No Were any procedures done? @ -No Diagnosis/symptom? @ -Expanding hematoma right thigh, suspected arterial bleed, status post heart cath Acute, or Chronic, or Acute on Chronic? @ -Acute Uncomplicated (without systemic symptoms) or Complicated (systemic symptoms)? @ -Complicated Side effects of treatment? @ -No Exacerbation, Progression, or Severe Exacerbation? @ -No Poses a threat to life or bodily function? How? (Chest pain, [place], HI, pneumonia, PE, COPD, DKA, ARF, appy, cholecystitis, CVA, Diverticulitis, Homicidal, Suicidal, threat to staff... and all critical care pts) @ -Yes this patient has had significant loss of blood with continued arterial bleeding (Lamar Trotter) - Lab Data Lab Results 08/27/24 08/27/24 08/27/24 Range/Units 18:15 18:15 18:15 WBC 9.4 (3.8-10.6) k/uL RBC 3.93 (3.80-5.40) m/uL Hgb 11.3 L (11.4-16.0) gm/dL Hct 34.1 (34.0-46.0) % MCV 86.7 (80.0-100.0) fL MCH 28.7 (25.0-35.0) pg MCHC 33.0 (31.0-37.0) g/dL RDW 13.2 (11.5-15.5) % Plt Count 202 (150-450) k/uL MPV 9.0 Neutrophils % 77 % Lymphocytes % 16 % Monocytes % 5 % Eosinophils % 0 % Basophils % 0 % Neutrophils # 7.2 (1.3-7.7) k/uL Lymphocytes # 1.5 (1.0-4.8) k/uL Monocytes # 0.5 (0-1.0) k/uL Eosinophils # 0.0 (0-0.7) k/uL Basophils # 0.0 (0-0.2) k/uL PT 26.4 H (10.0-12.5) sec INR 2.6 H (<1.2) Sodium 135 L (137-145) mmol/L Potassium 4.1 (3.5-5.1) mmol/L Chloride 104 (98-107) mmol/L Carbon Dioxide 27 (22-30) mmol/L Anion Gap 4 mmol/L BUN 17 (7-17) mg/dL Creatinine 0.88 (0.52-1.04) mg/dL Est GFR (CKD-EPI)AfAm 78 (>60 ml/min/1.73 sqM) Est GFR (CKD-EPI)NonAf 68 (>60 ml/min/1.73 sqM) Glucose 149 H (74-99) mg/dL Calcium 10.8 H (8.4-10.2) mg/dL Total Bilirubin 1.6 H (0.2-1.3) mg/dL AST 21 (14-36) U/L ALT 19 (4-34) U/L Alkaline Phosphatase 72 (38-126) U/L Total Protein 5.8 L (6.3-8.2) g/dL Albumin 3.5 (3.5-5.0) g/dL Blood Type Blood Type Confirm Blood Type Recheck Bld Type Recheck Status Antibody Screen Crossmatch Spec Expiration Date 08/27/24 08/27/24 Range/Units 20:43 21:05 WBC (3.8-10.6) k/uL RBC (3.80-5.40) m/uL Hgb (11.4-16.0) gm/dL Hct (34.0-46.0) % MCV (80.0-100.0) fL MCH (25.0-35.0) pg MCHC (31.0-37.0) g/dL RDW (11.5-15.5) % Plt Count (150-450) k/uL MPV Neutrophils % % Lymphocytes % % Monocytes % % Eosinophils % % Basophils % % Neutrophils # (1.3-7.7) k/uL Lymphocytes # (1.0-4.8) k/uL Monocytes # (0-1.0) k/uL Eosinophils # (0-0.7) k/uL Basophils # (0-0.2) k/uL PT (10.0-12.5) sec INR (<1.2) Sodium (137-145) mmol/L Potassium (3.5-5.1) mmol/L Chloride (98-107) mmol/L Carbon Dioxide (22-30) mmol/L Anion Gap mmol/L BUN (7-17) mg/dL Creatinine (0.52-1.04) mg/dL Est GFR (CKD-EPI)AfAm (>60 ml/min/1.73 sqM) Est GFR (CKD-EPI)NonAf (>60 ml/min/1.73 sqM) Glucose (74-99) mg/dL Calcium (8.4-10.2) mg/dL Total Bilirubin (0.2-1.3) mg/dL AST (14-36) U/L ALT (4-34) U/L Alkaline Phosphatase (38-126) U/L Total Protein (6.3-8.2) g/dL Albumin (3.5-5.0) g/dL Blood Type O Positive Blood Type Confirm O Positive Blood Type Recheck No Previous Record Bld Type Recheck Status CABO Indicated Antibody Screen NEGATIVE Crossmatch See Detail Spec Expiration Date 08/30/2024 - 2342 Disposition <Gertrudis Carter - Last Filed: 08/27/24 17:33> Is patient prescribed a controlled substance at d/c from ED?: No Time of Disposition: 21:31 Decision to Admit Reason: Admit from EC Decision Date: 08/27/24 Decision Time: 21:31 <Lamar Trotter - Last Filed: 09/04/24 13:01> Clinical Impression: Hematoma of right inguinal region, S/P right heart catheterization Disposition: ADMITTED IP TO THIS HOSP Condition: Serious
--- NOTE | 2024-08-27 18:39 | US ---
EXAMINATION TYPE: US lower ext pseudo artery RT DATE OF EXAM: 08/27/2024 COMPARISON: 08/08/2021 CLINICAL INDICATION: Female, 69 years old with history of pain and swelling cath 1 week ago; Patient states pain and swelling in groin from heart cath 1 week ago. TECHNIQUE:: Grayscale, color Doppler and spectral Doppler imaging performed of the groin, post cardia c catheter to assess for pseudoaneurysm. FINDINGS: SIDE PERFORMED: Right Color and Waveform Doppler performed to assess for the presence of pseudoaneurysm; There is an approximately 11.8 x 4.9 x 9.8cm complex area seen in the right groin. This area is dif ficult to fully evaluate due to size and surrounding edema. It does not appear to connect to the femo ral vessels as best seen. No vascularity seen within. Is there evidence of AV shunting: no IMPRESSION: Complex fluid collection in the right groin likely representing large hematoma. No evidence for pseud oaneurysm on this limited exam due to patient body habitus. [facility], , 08/27/2024 6:36 PM
[2024-08-27] MEDS: MORPHINE SULFATE 4 MG/ML SYRINGE IVP STA ×2 (18:53→20:18)
[2024-08-27 18:57] LABS: Basophils % (A) 0 %; Eosinophils % (A) 0 %; HCT 34.1 % (34.0-46.0); HGB 11.3 gm/dL (11.4-16.0); Lymphocytes # (A) 1.5 k/uL (1.0-4.8); Lymphocytes % (A) 16 %; MCH 28.7 pg (25.0-35.0); MCV 86.7 fL (80.0-100.0); Monocytes # (A) 0.5 k/uL (0-1.0); Monocytes % (A) 5 %; Neutrophils # (A) 7.2 k/uL (1.3-7.7); Neutrophils % (A) 77 %; Platelet Count 202 k/uL (150-450); RBC 3.93 m/uL (3.80-5.40); RDW 13.2 % (11.5-15.5); WBC 9.4 k/uL (3.8-10.6)
[2024-08-27 19:12] LABS: INR 2.6 (<1.2); Prothrombin Time 26.4 sec (10.0-12.5)
[2024-08-27 19:17] LABS: ALT 19 U/L (4-34); AST 21 U/L (14-36); African American GFR (CKD) 78 (>60 ml/min/1.73 sqM); Albumin 3.5 g/dL (3.5-5.0); Alkaline Phosphatase 72 U/L (38-126); Anion Gap 4 mmol/L; Blood Urea Nitrogen 17 mg/dL (7-17); Calcium 10.8 mg/dL (8.4-10.2); Carbon Dioxide 27 mmol/L (22-30); Chloride 104 mmol/L (98-107); Glucose 149 mg/dL (74-99); Non-African American GFR(CKD) 68 (>60 ml/min/1.73 sqM); Potassium 4.1 mmol/L (3.5-5.1); Sodium 135 mmol/L (137-145); Total Bilirubin 1.6 mg/dL (0.2-1.3); Total Protein 5.8 g/dL (6.3-8.2)
[2024-08-27] MEDS: SODIUM CHLORIDE 0.9% 1,000 ML IV ONE (20:53)
--- NOTE | 2024-08-27 21:23 | CT ---
EXAMINATION TYPE: CT lower extremity RT w con DATE OF EXAM: 08/27/2024 8:45 PM COMPARISON: . Extremity radiograph same day. Ultrasound same day. CLINICAL INDICATION: Female, 69 years old with history of groin/thigh pain, large hematoma; PHH, Groi n/thigh pain, large hematoma. TECHNIQUE: Axial images were obtained of the CT lower extremity RT w con, Additional coronal and sagi ttal reformatted images and soft tissue and bone window were obtained for review. Contrast used:100 ml mL of Isovue 300 with IV Contrast, (None if empty) Oral contrast used: (None if empty) CT DLP: 567.4 mGycm, Automated exposure control for dose reduction was used. FINDINGS: High density blood products are seen in the medial right thigh with hematoma measuring at l east 11.8 x 7.8 cm. Arterial contrast/blood products extends towards the hematoma does not definitive ly extend back towards one of the arterial major vessels. The superficial femoral artery but does not definitively communicate to that vessel within the limitations of this exam. Cholecystitis. BE branc h of the deep femoral artery. There is no evidence of fracture, subluxation, or dislocation. No sign ificant soft tissue swelling or joint effusion is identified. No focal muscular atrophy or edema is i dentified. No radiopaque foreign body identified. Uterus appears surgically absent. Scattered pelvic phleboliths. Few scattered colonic diverticula. IMPRESSION: 1. Active extravasation of arterial blood/contrast with large hematoma. Extravasation is not definit ively extending back to major vessel. The closest vessels are of the deep femoral artery and its bran ches. 2. No evidence of fracture. Findings communicated to Lamar Trotter DO on 08/27/2024 9:[address] Kali Alonso. [facility], , 08/27/2024 9:21 PM
[2024-08-27] MEDS ORDERED: NALOXONE 0.4 MG/ML 1 ML VIAL IV PRN (21:31)
[2024-08-27] MEDS: LIDOCAINE 1% INJ 10MG/ML (20 ML MDV) SQ ONE (22:49)
[2024-08-27] MEDS: fentaNYL (PF) 50 MCG/ML 2 ML AMP IVP ONE (22:50)
[2024-08-27] MEDS: IV FLUID CONTINUATION 1,000 ML IV ONE ×2 (22:50→22:56)
[2024-08-27] MEDS: MIDAZOLAM 2 MG/2 ML VIAL IVP ONE (22:50)
--- NOTE | 2024-08-27 23:03 | P.HPIM ---
History of Present Illness H&P Date: 08/27/24 69 year old female with extensive cardiac history of atrial myxoma status postsurgery, sick sinus syndrome status post permanent pacemaker implantation previously, paroxysmal symptomatic A-fib with RVR intolerant of flecainide status post cryoablation of pulmonary veins(anticoagulated with Coumadin), and history of TIA presented to the ER with chief complaint of right groin swelling. 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 Patient states that she remained flat until Monday. She started getting up moving around on Monday and noticed pain and swelling. On Monday night, she went to aerobics. Last night she woke up with horrific pain and swelling. Patient reports she was instructed to resume normal activities on Monday, but she waited until Monday. Patient also reports that this has happened in the past. Currently, she denies chest pain, shortness of breath, abdominal pain, nausea or vomiting, diarrhea, fever or chills. ED documentation reviewed. In the ED, patient received a fluid bolus due to hypotension. Type and cross was also completed and 1 unit of FFP was ordered to be received prior to going to the [facility]. Review of systems: Pertinent positives and negatives as discussed in HPI, a complete review of systems was performed and all other systems are negative. Allergies: Betadine PCP: Dr. Wil Friedman Social history: Tobacco: None Alcohol: Occasional Recreational drugs: None Travel: None Sick contacts: None Physical examination: Vital signs reviewed General: nontoxic, no distress, appears at stated age Derm: warm, dry, intact Head: atraumatic, normocephalic, symmetric Eyes: anicteric sclera Mouth: no lip lesion, mucus membranes moist Cardiovascular: S1 S2 reg, no murmur Lungs: CTA bilateral, no rhonchi, no rales, no accessory muscle use Abdominal: soft, non-tender to palpation, nondistended Extremities: No cyanosis, clubbing, or pedal edema. right thigh swelling , tender to plapation , feels tense to the touch. no open wounds no active bleedin g, periphral pulses DP and PT both palpable right LE Neuro: Alert, Oriented to person, time and place, Gross neurological examination did not reveal any focal deficits. Cranial nerves II to XII grossly intact. Bilateral upper and lower extremity muscle strength intact and sensation intact. Psych: well appearing, appropriate affect Vitals on admission temperature 98.2, heart rate 76 bpm, respiratory rate 18, blood pressure 89/49 and after fluid bolus 114/70, O2 saturation 99% on room air Ultrasound of right lower extremity showed complex fluid collection in the right groin likely large hematoma, no evidence of pseudoaneurysm CT of the right lower extremity showed active extravasation of arterial blood with large hematoma Labs on admission show WBCs 9.4 hemoglobin 11.3, MCV 86.7, platelets 202. PT 26.4, INR 2.6. Sodium 135, potassium 4.1, chloride 104, bicarb 27, BUN 17, creatinine 0.88, glucose 149. Calcium 10.8. Assessment/Plan: Patient is a 69-year-old female with extensive cardiac history as stated above who presented to the ER with right groin swelling status post right heart cath on 08/20/2024. Case was discussed with ER physician, imaging revealed active extravasation and cardiology was consulted and will be taking the patient to the [facility]. Afterwards, the patient will be admitted to internal medicine service for further management. Active: Hematoma of right inguinal region, status post right heart catheterization 1 week ago Hemoglobin of 11.3, baseline is usually 14 Ultrasound of right lower extremity showed complex fluid collection in the right groin likely large hematoma, no evidence of pseudoaneurysm CT of the right lower extremity showed active extravasation of arterial blood with large hematoma Cardiology was consulted urgently Patient made NPO Patient will be going to [facility] tonight Patient to receive 1 unit of FFP's Type and cross completed CBC every 6 hours to monitor hemoglobin Continue to monitor vital signs Hold Coumadin Labs on admission show WBCs 9.4 hemoglobin 11.3, MCV 86.7, platelets 202. PT 26.4, INR 2.6. Sodium 135, potassium 4.1, chloride 104, bicarb 27, BUN 17, creatinine 0.88, glucose 149. Calcium 10.8. Hyperglycemia in nondiabetic on admission Continue to monitor Continue IV fluids If persistent, consider starting ISS Chronic: Hyperlipidemia Continue Lipitor 20 mg p.o. at bedtime Anxiety Continue Klonopin 0.5 mg p.o. at bedtime F: 0.9% NS at 75 mL/h E: Replete as needed N: N.p.o. A: Fall precautions DVT prophylaxis: Mechanical SCDs, due to active bleeding The patient is admitted with an anticipated more than 2 midnight stay for evaluation of hematoma of right inguinal region CODE STATUS: Full code Discussed with: Patient Anticipated discharge place: Pending clinical course I have seen and evaluated the patient today. I Discussed the case with the resident and agree with the resident's findings I edited the assessment and plan as necessary as documented in the resident's note. 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 Past Anesthesia/Blood Transfusion Reactions: No Reported Reaction, Motion Sic kness Additional Past Anesthesia/Blood Transfusion Reaction / Comment(s): MOTION SICKNESS IF READING IN CAR. Type of Cardiac Device: Permanent Pacemaker Device Placement Date:: 07/11/16-[facility] Smoking Status: Never smoker - Past Family History Father Family Medical History: Cancer Additional Family Medical History / Comment(s): LYMPHOMA Medications and Allergies Home Medications Medication Instructions Recorded Confirmed Type clonazePAM [KlonoPIN] 0.5 mg PO HS 12/12/22 08/27/24 History Rosuvastatin [Crestor] 10 mg PO HS 08/14/24 08/27/24 History Warfarin [Coumadin] 5 mg PO MOTUWEFRSA 08/14/24 08/27/24 History traMADol HCL 50 mg PO QID PRN 08/14/24 08/27/24 History Warfarin [Coumadin] 2.5 mg PO SUTH 08/27/24 08/27/24 History Allergies Allergy/AdvReac Type Severity Reaction Status Date / Time povidone-iodine Allergy Unknown Rash/Hives, Verified 08/27/24 20:49 [From Betadine] Swelling soap [From Betadine] Allergy Unknown Rash/Hives, Verified 08/27/24 20:49 Swelling meat AdvReac Does not Uncoded 08/27/24 17:30 eat meat Physical Exam Vitals: Vital Signs Temp Pulse Resp BP Pulse Ox 08/27/24 20:47 60 18 114/70 97 08/27/24 17:26 98.2 F 76 18 89/49 99 Intake and Output 08/27/24 08/27/24 08/27/24 06:59 14:59 22:59 Other: Weight 74.843 kg Results CBC & Chem 7: 08/27/24 18:15 08/27/24 18:15 Labs: Abnormal Lab Results - Last 24 Hours (Table) 08/27/24 08/27/24 08/27/24 Range/Units 18:15 18:15 18:15 Hgb 11.3 L (11.4-16.0) gm/dL PT 26.4 H (10.0-12.5) sec INR 2.6 H (<1.2) Sodium 135 L (137-145) mmol/L Glucose 149 H (74-99) mg/dL Calcium 10.8 H (8.4-10.2) mg/dL Total Bilirubin 1.6 H (0.2-1.3) mg/dL Total Protein 5.8 L (6.3-8.2) g/dL
[2024-08-28] MEDS ORDERED: NALOXONE 0.4 MG/ML 1 ML VIAL IVP PRN (01:11)
--- NOTE | 2024-08-28 01:21 | P.PCN ---
Date of Procedure: 08/28/24 Operative Findings: Percutaneous peripheral arterial intervention Performing physician Teja Nunez MD Procedure performed 1. Successful hemostasis of a branch of the right profunda femoris artery using coil 2 mm x 4 cm and 15 cm packing coil 2. Successful stenting of the right SFA proximally using 7.0 x 15 mm Viabahn self-expandable stent 3. Adjunctive use of IVUS 4. Right lower extremity angiogram and left common femoral artery angiogram 5. Ultrasound-guided access of the left common femoral artery Indication The patient is a 69-year-old female patient who underwent recently a right heart catheterization from right common femoral vein approach. She presented to the emergency department complaining of right groin discomfort and she was noted to have large hematoma. She underwent a CTA and that revealed active bleeding appears to be arterial bleeding coming from the right profunda femoris artery. In the light of that she was brought emergently to the cardiac Shaker Tender Approach Left common femoral artery Complication None Level of sedation Moderate with sedation length of 2 hours and 10 minutes Procedure description After obtaining informed consent the patient was brought to the cardiac Shaker Tender. The left common femoral artery was cannulated using micropuncture technique under ultrasound guidance a micropuncture wire passed easily then I placed a 6 Nepalese 11 cm sheath at the left common femoral artery. I did go up and over to the right SFA using a 035 stiff Glidewire with a rim catheter. Subsequently the rim catheter was pulled out and the 11 cm 6 Nepalese sheath was advanced into a 7 cm 6 Nepalese sheath using the 035 stiff Glidewire and the sheath was advanced up and over all the way to the proximal right common femoral artery. I did write common femoral artery and right SFA and right profunda angiogram which revealed active bleeding apparently initially was seems to be coming from the SFA proximally. Subsequently I did wire the SFA using a [address] wire. I did intravascular ultrasound which showed a diameter between 6 mm in diameter. At that point I decided to balloon tamponade the artery which was performed using 6 mm balloon but the bleeding continues and in the light of that I decided to cover the lesion using Viabahn self-expandable stent. I was able to exchange my 70 cm 6 Nepalese sheath into a 70 cm 7 Nepalese sheath using a 3 5 stiff Glidewire and subsequently I wired the SFA again using a 1 4 wire and then I advanced the stent all the way to the proximal right SFA. The stent was positioned under fluoroscopy guidance and deployed and subsequently postdilated using 7 mm balloon. An angiogram showed continuous active bleeding coming from the initially the SFA but on oblique view it seems to be coming from a branch appears to be very small coming from the profunda. I was able to wire the branch using a 1 4 wire and then I was able to advance a glide catheter over the 014 wire to the proximal portion of that branch. I was able to deploy 3 coils as described above initially 2 mm and subsequently 2 mm and subsequently a backing coil. In spite of that the bleeding continues. Further evaluation in more views and more angiogram showed that the bleeding also is coming from a small branch on the opposite side of the initial branch we coiled. With that I was able to wire that branch using an 035 stiff Glidewire and then I was able to advance a glide catheter over the wire to the very proximal/ostial of that branch. The catheter was left for few minutes. An angiogram after that showed that the bleeding has stopped. At that point I did right lower extremity angiogram with a good flow in the right SFA and right profunda and poorly visualized arteries below the knee on the right side. Subsequently I did exchange my 70 cm 7 Nepalese sheath into 11 cm 7 Nepalese sheath and I did selective left common femoral artery angiogram. The left femoral artery appeared to be diseased and with that I did not place any Angio-Seal or varicose and will do manual pullback of the sheath. The procedure was completed with no complication Postprocedure management Continue holding any anticoagulation at this point Continue holding any antiplatelet at this point as well Monitor the hematoma in the right groin The patient to be admitted to the intensive care unit Follow-up with the patient
--- NOTE | 2024-08-28 01:30 | P.CRDCN ---
History of Present Illness Consult date: 08/28/24 Chief complaint: Right groin discomfort History of present illness: The patient is a 69-year-old female patient with a past medical history signi ficant for paroxysmal atrial fibrillation as well as history of mitral valve repair using a ring as well as history of atrial myxoma removal and also history of stroke and permanent pacemaker. The patient presented to the emergency department complaining of right groin discomfort. The patient underwent a heart catheterization last week and that was a right heart catheterization by Dr. Abdul and she was discharged the following day in stable medical condition. She presented to the emergency department complaining of right groin discomfort for the last 24 to 48 hours. She was noted to have large hematoma in the right groin it was extremely tender. Subsequently further evaluation was performed including a blood work and that showed a hemoglobin drop from 13-11. Subsequently she underwent a CTA of the abdomen and pelvis and that revealed active arterial bleeding at the site of the right profunda femoral was artery. In the light of the ongoing discomfort as well as large hematoma has been expanding and dropping in the hemoglobin the decision was made to take the patient to the cardiac catheterization laboratory where she underwent right femoral angiogram which initially revealed possible perforation in the right SFA which was stented using a covered stent after failing balloon tamponade. But subsequently further evaluation of the angiogram revealed that the patient was actively bleeding from a small branch coming from the right profunda femoris artery. I was able to coil the branch successfully. The patient tolerated the procedure very well. The final angiogram showed no more active bleeding. She tolerated the procedure well. Subsequently we placed a 7 Ukrainian sheath at the left common femoral artery and manual pullback of the sheath will be advised. Please note that the patient presented to the hospital with INR of 2.6. She was given an FFP. She will be admitted to the intensive care unit. Hemodynamically she remains stable throughout the procedure with no need for any vasopressors. Hemoglobin will be monitored very closely. Oral anticoagulation with Coumadin will be on hold. Will monitor the hematoma in the right groin and if the hematoma is enlarging she might need to undergo surgical evaluation with possible evacuation of the hematoma. The physical examination is remarkable for distant heart sounds with a systolic murmur at the right and left upper sternal border and diminished breathing sounds bilaterally and no edema was noted in the lower extremities but the patient was noted to have large hematoma below the inguinal ligament on the right side. Assessment Status post right heart catheterization from right common femoral vein Large hematoma secondary to a perforation of a small branch of the right profunda femoris artery Successful coiling of the branch with achieving of hemostasis and no more active bleeding from the right profunda femoris Anemia secondary to blood loss Multiple comorbid conditions including paroxysmal atrial fibrillation and valvular heart disease and history of stroke and permanent pacemaker Plan ICU admission Monitor the hemoglobin Consider hemodynamic support if needed Hold any anticoagulation and antiplatelet at this point Follow-up with the patient Past Medical History Past Medical History: Atrial Fibrillation, Blood Disorder, Heart Failure, CVA/TIA, Osteoarthritis (OA) Additional Past Medical History / Comment(s): STATES STROKE X4 (2010)- WITH SLIGHT WEAKNESS LEFT SIDED., MIGRAINES, ARTHRITIS IN KNEES AND DDD IN NEC History of Any Multi-Drug Resistant Organisms: None Reported Past Surgical History: Cardiac Ablation, Hysterectomy, Pacemaker Additional Past Surgical History / Comment(s): 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 Past Anesthesia/Blood Transfusion Reactions: No Reported Reaction, Motion Sickness Additional Past Anesthesia/Blood Transfusion Reaction / Comment(s): MOTION SI CKNESS IF READING IN CAR. Type of Cardiac Device: Permanent Pacemaker Device Placement Date:: 07/11/[email or web address] Smoking Status: Never smoker - Past Family History Father Family Medical History: Cancer Additional Family Medical History / Comment(s): LYMPHOMA Medications and Allergies Home Medications Medication Instructions Recorded Confirmed Type clonazePAM [KlonoPIN] 0.5 mg PO HS 12/12/22 08/27/24 History Rosuvastatin [Crestor] 10 mg PO HS 08/14/24 08/27/24 History Warfarin [Coumadin] 5 mg PO MOTUWEFRSA 08/14/24 08/27/24 History traMADol HCL 50 mg PO QID PRN 08/14/24 08/27/24 History Warfarin [Coumadin] 2.5 mg PO SUTH 08/27/24 08/27/24 History Allergies Allergy/AdvReac Type Severity Reaction Status Date / Time povidone-iodine Allergy Unknown Rash/Hives, Verified 08/27/24 20:49 [From Betadine] Swelling soap [From Betadine] Allergy Unknown Rash/Hives, Verified 08/27/24 20:49 Swelling meat AdvReac Does not Uncoded 08/27/24 17:30 eat meat Physical Exam Vitals: Vital Signs Temp Pulse Resp BP Pulse Ox 08/27/24 22:20 86 18 90/50 96 08/27/24 20:47 60 18 114/70 97 08/27/24 17:26 98.2 F 76 18 89/49 99 Intake and Output 08/27/24 08/27/24 08/28/24 14:59 22:59 06:59 Intake Total 100 334 Balance 100 334 Intake: IV 100 Blood Product 0 334 Ffp 24 Cpd Unit 0 334 [id number] Other: Weight 74.843 kg Results 08/27/24 18:15 08/27/24 18:15 Cardiac Enzymes 08/27/24 Range/Units 18:15 AST 21 (14-36) U/L Coagulation 08/27/24 Range/Units 18:15 PT 26.4 H (10.0-12.5) sec CBC 08/27/24 Range/Units 18:15 WBC 9.4 (3.8-10.6) k/uL RBC 3.93 (3.80-5.40) m/uL Hgb 11.3 L (11.4-16.0) gm/dL Hct 34.1 (34.0-46.0) % Plt Count 202 (150-450) k/uL Comprehensive Metabolic Panel 08/27/24 Range/Units 18:15 Sodium 135 L (137-145) mmol/L Potassium 4.1 (3.5-5.1) mmol/L Chloride 104 (98-107) mmol/L Carbon Dioxide 27 (22-30) mmol/L BUN 17 (7-17) mg/dL Creatinine 0.88 (0.52-1.04) mg/dL Glucose 149 H (74-99) mg/dL Calcium 10.8 H (8.4-10.2) mg/dL AST 21 (14-36) U/L ALT 19 (4-34) U/L Alkaline Phosphatase 72 (38-126) U/L Total Protein 5.8 L (6.3-8.2) g/dL Albumin 3.5 (3.5-5.0) g/dL Current Medications Generic Name Dose Route Start Last Admin Trade Name Freq PRN Reason Stop Dose Admin Atorvastatin Calcium 20 mg 08/28/24 21:00 Atorvastatin 20 Mg Tab PO HS ALISSA Clonazepam 0.5 mg 08/27/24 22:30 Clonazepam 0.5 Mg Tab PO HS ALISSA Hydromorphone HCl 0.5 mg 08/28/24 00:18 Hydromorphone 0.5 Mg/0.5 Ml Syringe IVP Q3HR PRN Pain Sodium Chloride 1,000 mls @ 75 mls/hr 08/28/24 00:45 Saline 0.9% IV .[id number] ALISSA Sodium Chloride 1,000 ml/ IV 1,000 mls @ 75 mls/hr 08/28/24 01:15 Solution IV 08/28/24 06:14 .[id number] ALISSA Naloxone HCl 0.2 mg 08/27/24 21:31 Naloxone 0.4 Mg/Ml 1 Ml Vial IV Q2M PRN Opioid Reversal Naloxone HCl 0.2 mg 08/28/24 01:11 Naloxone 0.4 Mg/Ml 1 Ml Vial IVP Q2M PRN Opioid Reversal Intake and Output 08/27/24 08/27/24 08/28/24 14:59 22:59 06:59 Intake Total 100 334 Balance 100 334 Intake: IV 100 Blood Product 0 334 Ffp 24 Cpd Unit 0 334 [id number] Other: Weight 74.843 kg Patient Weight 08/28/24 06:59 Weight 74.843 kg 08/27/24 18:15 08/27/24 18:15
[2024-08-28 01:38] LABS: Glucose,Whole Blood 168 mg/dL (70-110)
[2024-08-28 02:31] LABS: Basophils % (A) 0 %; Eosinophils % (A) 0 %; HCT 25.2 % (34.0-46.0); Lymphocytes # (A) 1.2 k/uL (1.0-4.8); Lymphocytes % (A) 21 %; MCH 29.6 pg (25.0-35.0); MCHC 33.4 g/dL (31.0-37.0); MCV 88.7 fL (80.0-100.0); Mean Platelet Volume 9.7; Monocytes # (A) 0.4 k/uL (0-1.0); Monocytes % (A) 7 %; Neutrophils # (A) 4.1 k/uL (1.3-7.7); Neutrophils % (A) 71 %; Platelet Count 162 k/uL (150-450); RBC 2.84 m/uL (3.80-5.40); RDW 13.3 % (11.5-15.5); WBC 5.9 k/uL (3.8-10.6)
[2024-08-28 02:44] LABS: HGB 8.4 gm/dL (11.4-16.0)
[2024-08-28] MEDS: HYDROmorphone 0.5 MG/0.5 ML SYRINGE IVP PRN (02:44)
[2024-08-28 02:59] LABS: African American GFR (CKD) >90 (>60 ml/min/1.73 sqM); Anion Gap 5 mmol/L; Blood Urea Nitrogen 17 mg/dL (7-17); Carbon Dioxide 26 mmol/L (22-30); Chloride 104 mmol/L (98-107); Glucose 151 mg/dL (74-99); Non-African American GFR(CKD) 79 (>60 ml/min/1.73 sqM); Potassium 4.2 mmol/L (3.5-5.1); Sodium 135 mmol/L (137-145)
[2024-08-28] MEDS: clonazePAM 0.5 MG TAB PO SCH (03:14)
[2024-08-28] MEDS: SODIUM CHLORIDE 0.9% 1,000 ML IV SCH (04:18)
[2024-08-28] MEDS: PHYTONADIONE 2 MG in SODIUM CHLORIDE 0.9% 50 ML IVPB STA (04:19)
[2024-08-28] MEDS: SODIUM CHLORIDE 0.9% 1,000 ML in EMPTY BAG 1 BAG IV SCH (04:19)
[2024-08-28 08:24] LABS: HCT 23.1 % (34.0-46.0); HGB 7.7 gm/dL (11.4-16.0); MCH 29.5 pg (25.0-35.0); MCHC 33.3 g/dL (31.0-37.0); MCV 88.6 fL (80.0-100.0); Mean Platelet Volume 9.2; Platelet Count 175 k/uL (150-450); RBC 2.61 m/uL (3.80-5.40); RDW 13.6 % (11.5-15.5); WBC 6.4 k/uL (3.8-10.6)
[2024-08-28 08:46] LABS: INR 2.5 (<1.2); Partial Thromboplastin Time 28.2 sec (22.0-30.0); Prothrombin Time 25.4 sec (10.0-12.5)
[2024-08-28] MEDS: SODIUM CHLORIDE 0.9% 250 ML IV SCH (10:11)
--- NOTE | 2024-08-28 11:27 | P.PN ---
Subjective Progress Note Date: 08/28/24 Hospital Course: 69 year old female with extensive cardiac history of atrial myxoma status postsurgery, sick sinus syndrome status post permanent pacemaker implantation previously, paroxysmal symptomatic A-fib with RVR intolerant of flecainide status post cryoablation of pulmonary veins(anticoagulated with Coumadin), and history of TIA presented to the ER with chief complaint of right groin swelling. Patient reports that on August 20, 2024, she underwent right heart catheter ization to evaluate right heart pressures and wedge pressure with Dr. 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 Patient states that she remained flat until Monday. She started getting up moving around on Monday and noticed pain and swelling. On Monday night, she went to aerobics. Last night she woke up with horrific pain and swelling. Patient reports she was instructed to resume normal activities on Monday, but she waited until Monday. Patient also reports that this has happened in the past. Currently, she denies chest pain, shortness of breath, abdominal pain, nausea or vomiting, diarrhea, fever or chills. ED documentation reviewed. In the ED, patient received a fluid bolus due to hypotension. Type and cross was also completed and 1 unit of FFP was ordered to be received prior to going to the [employer]. Review of systems: Pertinent positives and negatives as discussed in HPI, a complete review of systems was performed and all other systems are negative. Allergies: Betadine PCP: Dr. Wil Friedman Subjective: 08/28/2024: Patient seen and evaluated bedside in the ICU. No acute events overnight. States that she still has some right sided groin pain. Pertinent positives and negatives as discussed above, a complete review of systems was performed and all other systems are negative. Vitals: Signs Reviewed Physical Exam: General: nontoxic, no distress, appears at stated age Derm: warm, dry, intact Head: atraumatic, normocephalic, symmetric Eyes: EOMI, anicteric sclera Mouth: no lip lesion, mucus membranes moist Cardiovascular: S1 S2 reg, no murmur, rubs, or gallops Lungs: CTA bilateral, no rhonchi, no rales, no accessory muscle use Abdominal: soft, non-tender to palpataion, no appreciable organomegaly Extremities: no gross muscle atrophy, no edema, no contractures, right thigh swelling , tender to plapation , feels tense to the touch. no open wounds no active bleeding, periphral pulses DP and PT both palpable right LE Neuro: Alert, Oriented, CNII-XII grossly intact, gait normal Psych: well appearing, appropriate affect Data Received Today: Pertinent Labs: Hgb 7.7, INR 2.5 Imaging: N/A Assessment/Plan: Patient is a 69-year-old female with paroxysmal symptomatic atrial fibrillation with RVR (on Coumadin), history of atrial myxoma status post surgery, sick sinus syndrome status post permanent pacemaker implantation, TIA who presented to the ER with right groin swelling status post right heart cath on 08/20/2024. Active: Right inguinal hematoma, status post right heart catheterization 1 week ago Paroxysmal atrial fibrillation on warfarin -Ultrasound of right lower extremity showed complex fluid collection in the right groin likely large hematoma, no evidence of pseudoaneurysm - CT of the right lower extremity showed active extravasation of arterial blood with large hematoma - Patient made NPO - Patient will be going to [employer] tonight - Patient INR 2.6 on admission was given 1 unit of FFP's Patient was also given 2 mg IV vitamin K last night, given oral vitamin K 5 mg today - Hold Coumadin - CBC every 6 hours to monitor hemoglobin - Continue to monitor vital signs - Cardiology note reviewed, successful hemostasis large hematomas secondary to perforation of small branch of the right profunda femoris artery, continue to monitor hemoglobin hold any anticoagulation -Discussed with cardiology, will give 1 unit PRBC Acute blood loss anemia Likely from procedure Transfuse if Hgb below 8.0 due to pre-existing cardiovascular disease Given unit of blood due to hemoglobin being 7.7 Follow-up CBC every 6 hours Hyperglycemia in nondiabetic on admission Continue to monitor Continue IV fluids If persistent, consider starting ISS Chronic: Hyperlipidemia Continue Lipitor 20 mg p.o. at bedtime Anxiety Continue Klonopin 0.5 mg p.o. at bedtime F: 0.9% NS at 75 mL/h E: Replete as needed N: N.p.o. A: Fall precautions DVT prophylaxis: Mechanical SCDs, due to active bleeding Code status: Full code Anticipated discharge place: Pending clinical course Anticipated discharge time: Pending clinical course Osvaldo Gale MD PGY-1 IM Dictation was produced using [employer] dictation software. please excuse any grammatical, word or spelling errors. Patient is critically ill, and has medical ICU. Prognosis guarded. I have seen and evaluated the patient today. Discussed with the resident and agree with the residents finding and plan as documented in the resident's note. Changes highlighted in blue font. Objective - Vital Signs Vital signs: Vital Signs Temp 97.4 F L 08/28/24 01:57 Pulse 86 08/27/24 22:20 Resp 12 08/28/24 04:57 BP 84/50 08/28/24 04:57 Pulse Ox 100 08/28/24 04:57 FiO2 Intake & Output 08/27/24 08/28/24 08/28/24 18:59 06:59 18:59 Intake Total 1284 Output Total 250 Balance 1034 Weight 74.843 kg 82.7 kg Intake: IV 300 Intake, IV Titration 650 Amount Sodium Chloride 0.9% 1, 450 000 ml In Empty Bag 1 bag @ 75 mls/hr IV .[id number] [facility] Rx#:[id number] Sodium Chloride 0.9% 250 200 ml @ 999 mls/hr IV .[id number] [facility] Rx#:[id number] Blood Product 334 Ffp 24 Cpd Unit 334 [id number] Output: Urine 250 Other: Voiding Method Indwelling Catheter - Labs CBC & Chem 7: 08/28/24 08:06 08/28/24 02:15 Labs: Abnormal Lab Results - Last 24 Hours (Table) 08/27/24 08/27/24 08/27/24 Range/Units 18:15 18:15 18:15 RBC (3.80-5.40) m/uL Hgb 11.3 L (11.4-16.0) gm/dL Hct (34.0-46.0) % PT 26.4 H (10.0-12.5) sec INR 2.6 H (<1.2) Sodium 135 L (137-145) mmol/L Glucose 149 H (74-99) mg/dL POC Glucose (mg/dL) (70-110) mg/dL Calcium 10.8 H (8.4-10.2) mg/dL Total Bilirubin 1.6 H (0.2-1.3) mg/dL Total Protein 5.8 L (6.3-8.2) g/dL Crossmatch 08/27/24 08/28/24 08/28/24 Range/Units 20:43 01:36 02:15 RBC 2.84 L (3.80-5.40) m/uL Hgb 8.4 L D (11.4-16.0) gm/dL Hct 25.2 L (34.0-46.0) % PT (10.0-12.5) sec INR (<1.2) Sodium (137-145) mmol/L Glucose (74-99) mg/dL POC Glucose (mg/dL) 168 H (70-110) mg/dL Calcium (8.4-10.2) mg/dL Total Bilirubin (0.2-1.3) mg/dL Total Protein (6.3-8.2) g/dL Crossmatch See Detail 08/28/24 Range/Units 02:15 RBC (3.80-5.40) m/uL Hgb (11.4-16.0) gm/dL Hct (34.0-46.0) % PT (10.0-12.5) sec INR (<1.2) Sodium 135 L (137-145) mmol/L Glucose 151 H (74-99) mg/dL POC Glucose (mg/dL) (70-110) mg/dL Calcium (8.4-10.2) mg/dL Total Bilirubin (0.2-1.3) mg/dL Total Protein (6.3-8.2) g/dL Crossmatch
[2024-08-28] MEDS: PHYTONADIONE ORAL 5 MG/5 ML ORAL.SYRG PO STA (12:15)
[2024-08-28] MEDS: NOREPINEPHRINE 4 MG in SODIUM CHLORIDE 0.9% 250 ML IV SCH (12:41)
--- NOTE | 2024-08-28 12:56 | PN ---
PROGRESS NOTE This is a 69-year-old lady, who presented to hospital with right groin hematoma secondary to right profunda femoris arterial bleeding. She has history of paroxysmal and also has a permanent pacemaker. She apparently underwent right heart catheterization, was discharged home in a stable condition and came back to the ER with right groin . She underwent emergent cardiac catheterization and had a covered stent of the right superficial femoral artery. There was active bleeding coming from the right profunda femoris artery. At the time of my evaluation this morning, the patient appears stable hemodynamically, was hypotensive and they were thinking about starting Levophed, but they did not have to as the pressure had come up. Her CBC showed a continued drop in her hemoglobin. It has dropped from 11.3 to 8.4 to 7.7. INR is 2.5. PHYSICAL EXAMINATION: VITAL SIGNS: Heart rate is 95 beats per minute, blood pressure is 97/53, respiratory rate is 12. CHEST: Reveals good air entry bilaterally. HEART: Reveals first and second heart sounds. No gallop. EXTREMITIES: Did not reveal any edema. Left groin arterial access site appears normal. There is a large hematoma over the right thigh. ASSESSMENT: 1. Right groin bleeding with hematoma following recent procedure, status post closure of the bleeding site with a covered stent. 2. Anemia. PLAN: Please transfuse the patient to keep the hemoglobin above 8. The patient has already reversed the anticoagulation with vitamin K and we will start the patient on Levophed if necessary. MMODL / IJN: [id number] /
[2024-08-28 18:35] LABS: HCT 24.8 % (34.0-46.0); HGB 8.6 gm/dL (11.4-16.0); MCHC 34.6 g/dL (31.0-37.0); MCV 86.5 fL (80.0-100.0); Mean Platelet Volume 9.5; Platelet Count 142 k/uL (150-450); RBC 2.87 m/uL (3.80-5.40); RDW 13.8 % (11.5-15.5); WBC 6.7 k/uL (3.8-10.6)
--- NOTE | 2024-08-28 18:40 | IR ---
EXAMINATION TYPE: IR angio abdominal w runoff DATE OF EXAM: 08/28/2024 CLINICAL HISTORY: Right groin pain TECHNIQUE: Fluoroscopy. COMPARISON: None. FINDINGS: Fluoroscopic guidance was provided during abdominal angiogram with lower extremity runoff procedure performed by vascular surgeon. A total with 30.6 minutes of fluoroscopic time was utilized during the procedure and 569 spot images was acquired. Please refer to procedure note for further de tails. TOTAL DAP = 26.2 Gy x cm2. IMPRESSION: As Above. [facility], , 08/28/2024 6:38 PM
[2024-08-28] MEDS: ATORVASTATIN 20 MG TAB PO SCH (21:15)
[2024-08-29 03:05] LABS: HCT 23.6 % (34.0-46.0); HGB 8.2 gm/dL (11.4-16.0); MCH 30.1 pg (25.0-35.0); MCHC 34.9 g/dL (31.0-37.0); MCV 86.2 fL (80.0-100.0); Mean Platelet Volume 9.8; Platelet Count 131 k/uL (150-450); RBC 2.74 m/uL (3.80-5.40); RDW 13.9 % (11.5-15.5); WBC 5.5 k/uL (3.8-10.6)
[2024-08-29 08:27] LABS: INR 1.2 (<1.2); Partial Thromboplastin Time 22.8 sec (22.0-30.0)
--- NOTE | 2024-08-29 08:59 | PN ---
PROGRESS NOTE SUBJECTIVE: 69-year-old lady who is admitted to hospital with right groin hematoma following recent procedure. The patient was on Coumadin at home that is currently on hold and the patient had received vitamin K. She also received blood transfusion when the hemoglobin was down to 7.7. Hemoglobin early this morning was 8.2. She is feeling somewhat better, is not requiring any pressors. OBJECTIVE: VITAL SIGNS: Blood pressures have been around 100, systolic heart rate is 90 to 100 beats per minute, O2 saturation is 99%. GENERAL: She is sitting up in a chair. CHEST: Reveals good air entry bilaterally. HEART: Reveals first and second heart sounds. No gallop. ABDOMEN: Soft. EXTREMITIES: Reveal large right thigh hematoma. The left groin appears free of bleeding. ASSESSMENT AND PLAN: Right groin bleeding with hematoma status post cardial occlusion of the right profunda femoris and the covered state of the femoral artery. The patient has had intermittent episodes of atrial fibrillation and carries a history of paroxysmal atrial fibrillation. I am going to ask Vascular Surgery to evaluate the patient to see if she needs evacuation of the hematoma of the right thigh. We will obtain another CBC. From that study, we will transfuse her. We will also obtain another INR today. MMODL / IJN: [id number] /
[2024-08-29 09:20] LABS: African American GFR (CKD) 89 (>60 ml/min/1.73 sqM); Anion Gap 5 mmol/L; Blood Urea Nitrogen 13 mg/dL (7-17); Calcium 9.8 mg/dL (8.4-10.2); Carbon Dioxide 27 mmol/L (22-30); Chloride 108 mmol/L (98-107); Glucose 111 mg/dL (74-99); Non-African American GFR(CKD) 77 (>60 ml/min/1.73 sqM); Potassium 4.3 mmol/L (3.5-5.1); Sodium 140 mmol/L (137-145)
[2024-08-29] MEDS: METOPROLOL TARTRATE 12.5 MG TAB PO SCH (09:56)
[2024-08-29 10:39] LABS: Basophils % (A) 0 %; Eosinophils # (A) 0.1 k/uL (0-0.7); Eosinophils % (A) 1 %; HCT 26.9 % (34.0-46.0); HGB 9.3 gm/dL (11.4-16.0); Lymphocytes # (A) 1.9 k/uL (1.0-4.8); Lymphocytes % (A) 30 %; MCH 30.3 pg (25.0-35.0); MCHC 34.6 g/dL (31.0-37.0); MCV 87.5 fL (80.0-100.0); Mean Platelet Volume 9.5; Monocytes # (A) 0.6 k/uL (0-1.0); Monocytes % (A) 9 %; Neutrophils # (A) 3.8 k/uL (1.3-7.7); Neutrophils % (A) 59 %; Platelet Count 153 k/uL (150-450); RBC 3.08 m/uL (3.80-5.40); RDW 13.8 % (11.5-15.5); WBC 6.5 k/uL (3.8-10.6)
--- NOTE | 2024-08-29 11:40 | P.GSCN ---
History of Present Illness Consult date: 08/29/24 Reason for Consult: Hematoma, possible drainage Requesting physician: Georges James History of present illness: This a pleasant 69-year-old female with a history of atrial fibrillation on Coumadin, mitral valve repair, previous stroke and permanent pacemaker who was scheduled for an outpatient cardiac catheterization on 08/20/[address] Oneil. Apparently 3 to 4 days ago patient started having pain in her right groin at her access site along with swelling and bruising. She was brought and had a arterial ultrasound that showed a large hematoma without any pseudoaneurysm. She had further imaging done of a CT with contrast of the right lower extremity again showing a large hematoma with active extravasation of arterial blood. Patient was brought back to cardiovascular lab with Dr. Nunez on 08/28/2024 with reported successful hemostasis the branch of the right profunda femoris artery with coiling and stenting of the right SFA. Patient still complaining of pain in her right groin as well as her left groin post procedure. Vascular surgery was consulted for further evaluation for possible hematoma dr das. Patient states she has pain in her right and left groin, right inner thigh with bruising. She has full range of motion of her lower extremities. Patient did have a 3 g drop in her hemoglobin from 11.3 on admission to 8.2. She is status post 1 unit of blood and 1 unit of FFP Review of Systems A 14 point review systems was completed all pertinent positives and negatives as stated in the HPI. 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 Past Anesthesia/Blood Transfusion Reactions: No Reported Reaction, Motion Sickness Additional Past Anesthesia/Blood Transfusion Reaction / Comm: MOTION SICKNESS IF READING IN CAR. Type of Cardiac Device: Permanent Pacemaker Device Placement Date:: 07/11/16-Entellium Smoking Status: Never smoker - Past Family History Father Family Medical History: Cancer Additional Family Medical History / Comment(s): LYMPHOMA Medications and Allergies Home Medications Medication Instructions Recorded Confirmed Type clonazePAM [KlonoPIN] 0.5 mg PO HS 12/12/22 08/27/24 History Rosuvastatin [Crestor] 10 mg PO HS 08/14/24 08/27/24 History Warfarin [Coumadin] 5 mg PO MOTUWEFRSA 08/14/24 08/27/24 History traMADol HCL 50 mg PO QID PRN 08/14/24 08/27/24 History Warfarin [Coumadin] 2.5 mg PO SUTH 08/27/24 08/27/24 History Allergies Allergy/AdvReac Type Severity Reaction Status Date / Time povidone-iodine Allergy Unknown Rash/Hives, Verified 08/27/24 20:49 [From Betadine] Swelling soap [From Betadine] Allergy Unknown Rash/Hives, Verified 08/27/24 20:49 Swelling meat AdvReac Does not Uncoded 08/27/24 17:30 eat meat Surgical - Exam Vital Signs Temp Pulse Resp BP Pulse Ox 98.2 F 76 18 89/49 99 08/27/24 17:26 08/27/24 17:26 08/27/24 17:26 08/27/24 17:26 08/27/24 17:26 General appearance: The patient is alert, oriented, appears in no acute distre ss. HET: Head is normocephalic and atraumatic. Pupils are equal and reactive. Neck: Supple. Heart: Regular. Lungs: Equal expansion, normal respiratory effort. Abdomen: Soft, nontender, nondistended. Extremities: Right groin and pelvis with swelling and ecchymosis however it is soft. There is swelling down her lower extremity. Left groin access site with ecchymosis and small area of swelling again soft. Sensorimotor intact bilaterally with palpable PT and DP pulses. Neurological: No focal deficits. Strength and sensation are grossly intact. Results - Labs 08/29/24 10:25 08/29/24 07:55 Abnormal Lab Results - Last 24 Hours (Table) 08/27/24 08/28/24 08/28/24 Range/Units 20:43 07:58 18:26 RBC 2.87 L (3.80-5.40) m/uL Hgb 8.6 L (11.4-16.0) gm/dL Hct 24.8 L (34.0-46.0) % Plt Count 142 L (150-450) k/uL PT 25.4 H (10.0-12.5) sec INR 2.5 H (<1.2) Crossmatch See Detail 08/29/24 Range/Units 02:49 RBC 2.74 L (3.80-5.40) m/uL Hgb 8.2 L (11.4-16.0) gm/dL Hct 23.6 L (34.0-46.0) % Plt Count 131 L (150-450) k/uL PT (10.0-12.5) sec INR (<1.2) Crossmatch Assessment and Plan Assessment: 1. Right groin hematoma status post cardiac catheterization 2. Right profunda femoris artery bleed status post coil and stenting of right SFA 3. Atrial fibrillation on Coumadin, currently on hold Plan: Patient seen and examined. Patient does have right groin and thigh hematoma however it is soft. She has good palpable DP and PT pulses. There is no indication for any vascular surgical intervention or hematoma evacuation at this time. Agree with holding anticoagulation. Continue with further recommendations from cardiology and columnist. Thank you for this consultation we will continue to follow. The impression and plan of care has been dictated as directed. I performed a history and examination of this patient, discussed the same with the dictator. I agree with the dictator's note ,documented as a scribe. Any additional findings or plans will be noted.
--- NOTE | 2024-08-29 11:52 | P.PN ---
Subjective Progress Note Date: 08/29/24 Hospital Course: 69 year old female with extensive cardiac history of atrial myxoma status postsurgery, sick sinus syndrome status post permanent pacemaker implantation previously, paroxysmal symptomatic A-fib with RVR intolerant of flecainide status post cryoablation of pulmonary veins(anticoagulated with Coumadin), and history of TIA presented to the ER with chief complaint of right groin swelling. 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 Patient states that she remained flat until Monday. She started getting up moving around on Monday and noticed pain and swelling. On Monday night, she went to aerobics. Last night she woke up with horrific pain and swelling. Patient reports she was instructed to resume normal activities on Monday, but she waited until Monday. Patient also reports that this has happened in the past. Currently, she denies chest pain, shortness of breath, abdominal pain, nausea or vomiting, diarrhea, fever or chills. ED documentation reviewed. In the ED, patient received a fluid bolus due to hypotension. Type and cross was also completed and 1 unit of FFP was ordered to be received prior to going to the [facility] [employer]. Review of systems: Pertinent positives and negatives as discussed in HPI, a complete review of systems was performed and all other systems are negative. Allergies: Betadine PCP: Dr. Wil Friedman Subjective: Patient seen and evaluated bedside in the ICU. Overnight event of 2 episodes of A-fib. States that she still has the right sided groin pain. Denies any current chest pain, heart palpitations. Pertinent positives and negatives as discussed above, a complete review of systems was performed and all other systems are negative. Vitals: Signs Reviewed Physical Exam: General: nontoxic, no distress, appears at stated age Derm: warm, dry, intact Head: atraumatic, normocephalic, symmetric Eyes: EOMI, anicteric sclera Mouth: no lip lesion, mucus membranes moist Cardiovascular: S1 S2 reg, no murmur, rubs, or gallops Lungs: CTA bilateral, no rhonchi, no rales, no accessory muscle use Abdominal: soft, non-tender to palpataion, no appreciable organomegaly Extremities: no gross muscle atrophy, no edema, no contractures, right thigh swelling , tender to plapation , feels tense to the touch. no open wounds no active bleeding, periphral pulses DP and PT both palpable right LE Neuro: Alert, Oriented, CNII-XII grossly intact, gait normal Psych: well appearing, appropriate affect Data Received Today: Pertinent Labs: Hgb 9.3, INR 2.1 Imaging: N/A Assessment/Plan: Patient is a 69-year-old female with paroxysmal symptomatic atrial fibrillation with RVR (on Coumadin), history of atrial myxoma status post surgery, sick sinus syndrome status post permanent pacemaker implantation, TIA who presented to the ER with right groin swelling status post right heart cath on 08/20/2024. Active: Right inguinal hematoma, status post right heart catheterization 1 week ago Paroxysmal atrial fibrillation on warfarin -Ultrasound of right lower extremity showed complex fluid collection in the right groin likely large hematoma, no evidence of pseudoaneurysm - CT of the right lower extremity showed active extravasation of arterial blood with large hematoma - Patient made NPO - Patient INR 2.6 on admission was given 1 unit of FFP's Patient was also given 2 mg IV vitamin K last night, given oral vitamin K 5 mg today - Hold Coumadin, obtain another INR - CBC every 6 hours to monitor hemoglobin - Continue to monitor vital signs - s/p 1 unit pRBCs, Hgb stable - Cardiology note reviewed, successful hemostasis large hematomas secondary to perforation of small branch of the right profunda femoris artery, continue to monitor hemoglobin hold any anticoagulation -Cardiology note reviewed obtain INR, vascular surgery on the case Vascular surgery note reviewed, no indication for surgical intervention for hematoma evacuation at this time Acute blood loss anemia, improving Likely from procedure Transfuse if Hgb below 8.0 due to pre-existing cardiovascular disease Status post 1 unit PRBC, most recent Hgb 8.6 => 9.3 Follow-up CBC Hyperglycemia in nondiabetic on admission Continue to monitor Continue IV fluids Chronic: Hyperlipidemia Continue Lipitor 20 mg p.o. at bedtime Anxiety Continue Klonopin 0.5 mg p.o. at bedtime F: 0.9% NS at 20 mL/h E: Replete as needed N: N.p.o. A: Fall precautions DVT prophylaxis: Mechanical SCDs, due to active bleeding Code status: Full code Anticipated discharge place: Pending clinical course Anticipated discharge time: Pending clinical course Osvaldo Gale MD PGY-1 IM Dictation was produced using [employer] dictation software. please excuse any grammatical, word or spelling errors. I have seen and evaluated the patient today. Discussed with the resident and agree with the residents finding and plan as documented in the resident's note. Changes highlighted in blue font. Objective - Vital Signs Vital signs: Vital Signs Temp 98.8 F 08/29/24 04:00 Pulse 75 08/29/24 09:00 Resp 14 08/29/24 09:00 BP 104/53 08/29/24 09:00 Pulse Ox 99 08/29/24 08:00 FiO2 98 08/28/24 08:00 Intake & Output 08/28/24 08/29/24 08/29/24 18:59 06:59 18:59 Intake Total 375 750 75 Output Total 190 400 350 Balance 185 350 -275 Weight 78.6 kg Intake: IV 750 75 Sodium Chloride 0.9% 1, 750 75 000 ml @ 75 mls/hr IV . [id number] [facility] Rx#:[id number] Intake, IV Titration 375 Amount Sodium Chloride 0.9% 1, 375 000 ml In Empty Bag 1 bag @ 75 mls/hr IV .[id number] [facility] Rx#:[id number] Blood Product 0 Rc As-1 Unit 0 [id number] Output: Urine 190 400 350 Other: Voiding Method Bedpan Bedpan # Voids 1 1 1 - Labs CBC & Chem 7: 08/29/24 10:25 08/29/24 07:55 Labs: Abnormal Lab Results - Last 24 Hours (Table) 08/27/24 08/28/24 08/29/24 Range/Units 20:43 18:26 02:49 RBC 2.87 L 2.74 L (3.80-5.40) m/uL Hgb 8.6 L 8.2 L (11.4-16.0) gm/dL Hct 24.8 L 23.6 L (34.0-46.0) % Plt Count 142 L 131 L (150-450) k/uL PT (10.0-12.5) sec INR (<1.2) Chloride (98-107) mmol/L Glucose (74-99) mg/dL Crossmatch See Detail 08/29/24 08/29/24 Range/Units 07:55 07:55 RBC (3.80-5.40) m/uL Hgb (11.4-16.0) gm/dL Hct (34.0-46.0) % Plt Count (150-450) k/uL PT 13.0 H (10.0-12.5) sec INR 1.2 H (<1.2) Chloride 108 H (98-107) mmol/L Glucose 111 H (74-99) mg/dL Crossmatch
[2024-08-29] MEDS: SODIUM CHLORIDE 0.9% 500 ML 500 ML IV SCH (12:42)
[2024-08-30 03:40] LABS: Basophils % (A) 1 %; Eosinophils # (A) 0.1 k/uL (0-0.7); Eosinophils % (A) 2 %; HCT 22.7 % (34.0-46.0); Lymphocytes # (A) 1.7 k/uL (1.0-4.8); Lymphocytes % (A) 32 %; MCH 29.7 pg (25.0-35.0); MCHC 33.7 g/dL (31.0-37.0); MCV 88.3 fL (80.0-100.0); Mean Platelet Volume 8.8; Monocytes # (A) 0.5 k/uL (0-1.0); Monocytes % (A) 9 %; Neutrophils # (A) 2.9 k/uL (1.3-7.7); Neutrophils % (A) 54 %; Platelet Count 136 k/uL (150-450); RBC 2.57 m/uL (3.80-5.40); RDW 13.6 % (11.5-15.5); WBC 5.3 k/uL (3.8-10.6)
[2024-08-30 03:41] LABS: HGB 7.6 gm/dL (11.4-16.0)
[2024-08-30 03:46] LABS: INR 1.1 (<1.2)
[2024-08-30 04:24] LABS: African American GFR (CKD) >90 (>60 ml/min/1.73 sqM); Anion Gap 5 mmol/L; Blood Urea Nitrogen 14 mg/dL (7-17); Calcium 9.7 mg/dL (8.4-10.2); Carbon Dioxide 26 mmol/L (22-30); Chloride 107 mmol/L (98-107); Glucose 100 mg/dL (74-99); Non-African American GFR(CKD) 81 (>60 ml/min/1.73 sqM); Potassium 4.1 mmol/L (3.5-5.1); Sodium 138 mmol/L (137-145)
[2024-08-30 08:13] LABS: HCT 23.7 % (34.0-46.0); HGB 8.2 gm/dL (11.4-16.0); MCH 30.3 pg (25.0-35.0); MCHC 34.7 g/dL (31.0-37.0); MCV 87.4 fL (80.0-100.0); Mean Platelet Volume 9.2; Platelet Count 139 k/uL (150-450); RBC 2.71 m/uL (3.80-5.40); RDW 13.6 % (11.5-15.5); WBC 6.5 k/uL (3.8-10.6)
--- NOTE | 2024-08-30 12:29 | P.PN ---
Subjective Progress Note Date: 08/30/24 Principal diagnosis: Arterial bleed, hematoma Patient is seen and examined today as a follow-up. She remains in the ICU. We were asked to reevaluate right leg hematoma. Patient states she still has pain, there is increased swelling which is going down to her knee. She is hem odynamically stable. Hemoglobin 7.6 initially with a repeat of 8.2 today down from 9.3 yesterday. No active bleeding from access sites of either groin. She denies any shortness of breath or chest pain. No abdominal pain. Objective - Vital Signs Vital signs: Vital Signs Temp 97.8 F 08/30/24 04:00 Pulse 61 08/30/24 04:00 Resp 16 08/30/24 04:00 BP 93/47 08/30/24 04:00 Pulse Ox 98 08/30/24 04:00 FiO2 98 08/28/24 08:00 Intake & Output 08/29/24 08/30/24 08/30/24 18:59 06:59 18:59 Intake Total 75 Output Total 350 Balance -275 Weight 78.8 kg Intake: IV 75 Sodium Chloride 0.9% 1, 75 000 ml @ 75 mls/hr IV . [id number] ALISSA Rx#:[id number] Output: Urine 350 Other: Voiding Method Toilet Toilet # Voids 1 1 - Exam General appearance: The patient is alert, oriented, appears in no acute distr ess. HET: Head is normocephalic and atraumatic. Neck: Supple. Abdomen: Soft, nontender, nondistended. Extremities: Ecchymosis bilateral groins and pubis region as well as swelling down the right lower extremity down into her knee, right thigh swelling and ecchymosis medial aspect, soft and tender to palpation. Bilateral palpable PT and DP pulses. Neurological: No focal deficits. Alert and oriented. - Labs CBC & Chem 7: 08/30/24 07:55 08/30/24 03:10 Labs: Abnormal Lab Results - Last 24 Hours (Table) 08/29/24 08/29/24 08/29/24 Range/Units 07:55 07:55 10:25 RBC 3.08 L (3.80-5.40) m/uL Hgb 9.3 L (11.4-16.0) gm/dL Hct 26.9 L (34.0-46.0) % Plt Count (150-450) k/uL PT 13.0 H (10.0-12.5) sec INR 1.2 H (<1.2) Chloride 108 H (98-107) mmol/L Glucose 111 H (74-99) mg/dL 08/30/24 08/30/24 Range/Units 03:10 03:10 RBC 2.57 L (3.80-5.40) m/uL Hgb 7.6 L D (11.4-16.0) gm/dL Hct 22.7 L (34.0-46.0) % Plt Count 136 L (150-450) k/uL PT (10.0-12.5) sec INR (<1.2) Chloride (98-107) mmol/L Glucose 100 H (74-99) mg/dL Assessment and Plan Assessment: 1. Right groin hematoma status post cardiac catheterization 2. Right profunda femoris artery bleed status post coil and stenting of right SFA 3. Atrial fibrillation on Coumadin, currently on hold Plan: Patient seen and examined. Patient does have right groin and thigh hematoma with lower extremity swelling, however it is soft. She has good palpable DP and PT pulses. There is no indication for any vascular surgical intervention or hematoma evacuation at this time. Agree with holding anticoagulation. Discussed with cardiology if they are concerned that patient is having further bleeding recommend serial CBC and/or possible CTA of the lower extremities. Continue with further recommendations from cardiology and sql ssrs ssis developer. Recommend thigh-high RAMON hose to lower extremities or Malcolm wrap for swelling and compression. Also discussed with patient she will have continued swelling and ecchymosis which may expand. Thank you for this consultation, vascular surgery will be on standby. Please call us if further needed. The impression and plan of care has been dictated as directed. Dr. Phelan I performed a history and examination of this patient, discussed the same with the dictator. I agree with the dictator's note ,documented as a scribe. Any additional findings or plans will be noted.
--- NOTE | 2024-08-30 16:29 | P.PN ---
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 Patient reports that on August 20, 2024, she underwent right heart cathete rization to evaluate right heart pressures and wedge pressure with Dr. Oneil who is her assembler watch train. Patient states that she remained flat until Monday. She started getting up moving around on Monday and noticed pain and swelling. On Monday night, she went to aerobics. Last night she woke up with horrific pain and swelling. Patient reports she was instructed to resume normal activities on Monday, but she waited until Monday. Patient also reports that this has happened in the past. Currently, she denies chest pain, shortness of breath, abdominal pain, nausea or vomiting, diarrhea, fever or chills. ED documentation reviewed. In the ED, patient received a fluid bolus due to hypotension. Type and cross was also completed and 1 unit of FFP was ordered to be received prior to going to the Roll Examiner. Review of systems: Pertinent positives and negatives as discussed in HPI, a complete review of systems was performed and all other systems are negative. Allergies: Betadine PCP: Dr. Wil Friedman Subjective: Patient seen and evaluated bedside in the ICU. Overnight event of 2 episodes of A-fib. States that she still has the right sided groin pain. Denies any current chest pain, heart palpitations. Spoke to her in regards with Coumadin and the possibly of switching to a DOAC. We came to the agreement that she should follow-up with her retail leader in regards of being on any possible anticoagulation going forward. Pertinent positives and negatives as discussed above, a complete review of systems was performed and all other systems are negative. Vitals: Signs Reviewed Physical Exam: General: nontoxic, no distress, appears at stated age Derm: warm, dry, intact Head: atraumatic, normocephalic, symmetric Eyes: EOMI, anicteric sclera Mouth: no lip lesion, mucus membranes moist Cardiovascular: S1 S2 reg, no murmur, rubs, or gallops Lungs: CTA bilateral, no rhonchi, no rales, no accessory muscle use Abdominal: soft, non-tender to palpataion, no appreciable organomegaly Extremities: no gross muscle atrophy, no edema, no contractures, right thigh swelling , tender to plapation , feels tense to the touch. no open wounds no active bleeding, periphral pulses DP and PT both palpable right LE Neuro: Alert, Oriented, CNII-XII grossly intact, gait normal Psych: well appearing, appropriate affect Data Received Today: Pertinent Labs: Hgb 9.3, INR 2.1 Imaging: N/A Assessment/Plan: Patient is a 69-year-old female with paroxysmal symptomatic atrial fibrillation with RVR (on Coumadin), history of atrial myxoma status post surgery, sick sinus syndrome status post permanent pacemaker implantation, TIA who presented to the ER with right groin swelling status post right heart cath on 08/20/2024. Active: Right inguinal hematoma, status post right heart catheterization 1 week ago Paroxysmal atrial fibrillation on warfarin - Ultrasound of right lower extremity showed complex fluid collection in the right groin likely large hematoma, no evidence of pseudoaneurysm - CT of the right lower extremity showed active extravasation of arterial blood with large hematoma - Patient made NPO - Patient INR 2.6 on admission was given 1 unit of FFP's Patient was also given 2 mg IV vitamin K last night, given oral vitamin K 5 mg today - Hold Coumadin, obtain another INR - CBC every 6 hours to monitor hemoglobin - Continue to monitor vital signs - s/p 1 unit pRBCs, Hgb stable - Cardiology note reviewed, successful hemostasis large hematomas secondary to perforation of small branch of the right profunda femoris artery, continue to monitor hemoglobin hold any anticoagulation - Cardiology note reviewed obtain INR, vascular surgery on the case Vascular surgery note reviewed, no indication for surgical intervention or hematoma evacuation at this time - Cardiology not recommending CTA today as she has received contrast twice since she has been here Spoke with patient in regards to switching Coumadin to with DOAC, recommending her to follow-up with retail leader once discharged Acute blood loss anemia, improving Likely from procedure Transfuse if Hgb below 8.0 due to pre-existing cardiovascular disease Status post 1 unit PRBC, most recent Hgb 8.6 => 9.3 Follow-up CBC Hyperglycemia in nondiabetic on admission Continue to monitor Continue IV fluids Chronic: Hyperlipidemia Continue Lipitor 20 mg p.o. at bedtime Anxiety Continue Klonopin 0.5 mg p.o. at bedtime F: 0.9% NS at 20 mL/h E: Replete as needed N: N.p.o. A: Fall precautions DVT prophylaxis: Mechanical SCDs, due to active bleeding Code status: Full code Anticipated discharge place: Pending clinical course Anticipated discharge time: Pending clinical course Osvaldo Gale MD PGY-1 IM Dictation was produced using [employer] dictation software. please excuse any grammatical, word or spelling errors. I saw and evaluated the patient during the gupta and critical portions of this encounter, and discussed the case in detail with the resident author of this note, I agree with the Assessment and Plan, and my changes, if any, are highlighted in blue. Objective - Vital Signs Vital signs: Vital Signs Temp 97.8 F 08/30/24 04:00 Pulse 61 08/30/24 04:00 Resp 16 08/30/24 04:00 BP 93/47 08/30/24 04:00 Pulse Ox 98 08/30/24 04:00 FiO2 98 08/28/24 08:00 Intake & Output 08/29/24 08/29/24 08/30/24 06:59 18:59 06:59 Intake Total 750 75 Output Total 400 350 Balance 350 -275 Weight 78.6 kg 78.8 kg Intake: IV 750 75 Sodium Chloride 0.9% 1, 750 75 000 ml @ 75 mls/hr IV . [id number] ALISSA Rx#:[id number] Output: Urine 400 350 Other: Voiding Method Bedpan Toilet Toilet # Voids 1 1 1 - Labs CBC & Chem 7: 08/30/24 07:55 08/30/24 03:10 Labs: Abnormal Lab Results - Last 24 Hours (Table) 08/29/24 08/29/24 08/29/24 Range/Units 07:55 07:55 10:25 RBC 3.08 L (3.80-5.40) m/uL Hgb 9.3 L (11.4-16.0) gm/dL Hct 26.9 L (34.0-46.0) % Plt Count (150-450) k/uL PT 13.0 H (10.0-12.5) sec INR 1.2 H (<1.2) Chloride 108 H (98-107) mmol/L Glucose 111 H (74-99) mg/dL 08/30/24 08/30/24 Range/Units 03:10 03:10 RBC 2.57 L (3.80-5.40) m/uL Hgb 7.6 L D (11.4-16.0) gm/dL Hct 22.7 L (34.0-46.0) % Plt Count 136 L (150-450) k/uL PT (10.0-12.5) sec INR (<1.2) Chloride (98-107) mmol/L Glucose 100 H (74-99) mg/dL
--- NOTE | 2024-08-30 19:07 | PN ---
PROGRESS NOTE SUBJECTIVE: This is a 69-year-old lady with history of paroxysmal atrial fibrillation, status post cryoablation, sick sinus syndrome, status post permanent pacemaker, atrial myxoma, status post surgery, had extensive right groin hematoma related to following a right heart catheterization. She underwent emergent vascular procedure by Dr. Nunez and had a covered stent of the right superficial femoral artery and mild occlusion of a branch of the right profunda femoris. The patient was on Coumadin and this has been reversed with vitamin K. INR yesterday was 1.2, today is 1.1. Her hemoglobin was 9.3 yesterday, dropped to 7.6 around 3 o'clock this morning, but the subsequent hemoglobin that I have ordered this morning at around 7:45 was 8.2. Clinically, the patient appears much better. The right thigh discomfort has improved. Continues to have swelling, but this has improved. The patient was evaluated by Vascular Surgery, who did not think she needed any hematoma evacuation. We have decided to hold her Coumadin at this time and I advised the patient to see a partnership manager following discharge to address the need for long-term anticoagulation. PHYSICAL EXAMINATION: GENERAL: Comfortable at rest. VITAL SIGNS: Heart rate is 60 beats per minute, blood pressure is 93/47, respiratory rate is 16, O2 saturation is 98%. NECK: There is no jugular venous distention. Carotid upstroke is normal. There is no bruit. CHEST: Reveals good air entry bilaterally. HEART: Reveals first and second heart sounds. No gallop. ABDOMEN: Soft. EXTREMITIES: Groin exam reveals ecchymosis bilaterally more on the right than on the left, and the right thigh hematoma has improved and foot pulses are intact. LABORATORY DATA: Labs show that the hemoglobin was 8.2 yesterday, it went up to 9.3, fluctuated to 7.6, but this morning it is at 8.2. PLAN: I will watch her for another day in the hospital, ambulate her, and if her symptoms continue to improve and her hemoglobin remained stable, we will hopefully be able to discharge her home over the next 24 to 48 hours. MMODL / IJN: [id number] /
[2024-08-31 04:46] LABS: Basophils % (A) 1 %; Eosinophils # (A) 0.1 k/uL (0-0.7); Eosinophils % (A) 2 %; HCT 22.6 % (34.0-46.0); HGB 7.7 gm/dL (11.4-16.0); Lymphocytes # (A) 1.6 k/uL (1.0-4.8); Lymphocytes % (A) 35 %; MCH 29.6 pg (25.0-35.0); MCHC 33.9 g/dL (31.0-37.0); MCV 87.2 fL (80.0-100.0); Mean Platelet Volume 9.8; Monocytes # (A) 0.3 k/uL (0-1.0); Monocytes % (A) 7 %; Neutrophils # (A) 2.4 k/uL (1.3-7.7); Neutrophils % (A) 53 %; Platelet Count 146 k/uL (150-450); RBC 2.59 m/uL (3.80-5.40); WBC 4.5 k/uL (3.8-10.6)
[2024-08-31 05:08] LABS: African American GFR (CKD) 89 (>60 ml/min/1.73 sqM); Anion Gap 2 mmol/L; Blood Urea Nitrogen 17 mg/dL (7-17); Calcium 9.4 mg/dL (8.4-10.2); Carbon Dioxide 27 mmol/L (22-30); Chloride 106 mmol/L (98-107); Glucose 102 mg/dL (74-99); Non-African American GFR(CKD) 77 (>60 ml/min/1.73 sqM); Potassium 4.4 mmol/L (3.5-5.1); Sodium 135 mmol/L (137-145)
--- NOTE | 2024-08-31 09:41 | US ---
EXAMINATION TYPE: US venous doppler duplex LE RT DATE OF EXAM: 08/31/2024 9:29 AM COMPARISON: NONE CLINICAL INDICATION: Female, 69 years old with history of rule out DVT; , Pain TECHNIQUE: The lower extremity deep venous system is examined utilizing real time linear array sonog eugenia with graded compression, color doppler sonography, and spectral doppler. SIDE PERFORMED: Right FINDINGS: VESSELS IMAGED: Common Femoral Vein Deep Femoral Vein Greater Saphenous Vein * Femoral Vein Popliteal Vein Small Saphenous Vein * Proximal Calf Veins (* superficial vessels) Right Leg: Negative for DVT, Color Doppler imaging shows patency of the vessels. Spectral waveforms are within normal limits. Unable to fully compress veins within the groin area due to known hematoma - no evidence of DVT Left Leg: NA, Color Doppler imaging shows patency of the vessels. Spectral waveforms are within norm al limits. IMPRESSION: No ultrasound evidence for deep venous thrombosis. [facility], , 08/31/2024 9:39 AM
[2024-08-31] MEDS: SODIUM FERRIC GLUCONAT-SUCROSE 125 MG in SODIUM CHLORIDE 0.9% 100 ML IVPB ONE (10:01)
--- NOTE | 2024-08-31 12:14 | CT ---
CT right lower extremity with contrast. History: Right groin hematoma follow-up. COMPARISON: 08/27/2024. TECHNIQUE: Multiple axial images were obtained through the right hemipelvis and right thigh following IV contrast administration. FINDINGS: The right groin hematoma has decreased in size from 11.3 x 6 0.5-10 0.8 x 5.3 cm. The active contrast extravasation seen into the hematoma on the prior study is no longer present. There appear to be coi ls deployed within the branch of the proximal right profunda femoral artery. A there is a stent within the proximal right superficial femoral artery. The stent appears patent. There is increasing soft tissue edema in the subcutaneous soft tissues of the right hip and thigh. In particular there is marked increased edema within the distal right thigh compared to the prior study . IMPRESSION: 1. Mild decrease in size of the right groin hematoma as described above. 2. Extravasation of contrast indicating acute bleed seen on the prior study has resolved in the inter merissa. 3. Coils within a branch of the right profunda femoral artery. 4. Marked increased soft tissue edema in the right hemipelvis, hip area and thigh as described above. [facility], , 08/31/2024 12:12 PM
--- NOTE | 2024-08-31 12:25 | P.PN ---
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 Patient reports that on August 20, 2024, she underwent right heart cathete rization to evaluate right heart pressures and wedge pressure with Dr. Oneil who is her wheel press operator. Patient states that she remained flat until Monday. She started getting up moving around on Monday and noticed pain and swelling. On Monday night, she went to aerobics. Last night she woke up with horrific pain and swelling. Patient reports she was instructed to resume normal activities on Monday, but she waited until Monday. Patient also reports that this has happened in the past. Currently, she denies chest pain, shortness of breath, abdominal pain, nausea or vomiting, diarrhea, fever or chills. ED documentation reviewed. In the ED, patient received a fluid bolus due to hypotension. Type and cross was also completed and 1 unit of FFP was ordered to be received prior to going to the Slot Machine Key Person. - Ultrasound of right lower extremity showed complex fluid collection in the ri ght groin likely large hematoma, no evidence of pseudoaneurysm - CT of the right lower extremity showed active extravasation of arterial blood with large hematoma PCP: Dr. Wil Friedman Subjective: Patient seen and evaluated bedside in the ICU. Discussed the case with the wheel press operator at bedside. We will repeat CT imaging to ensure no further bleeding given tenuous hemoglobin. I agree with infusion of IV iron today. I will order an ultrasound of the lower extremity on the right to rule out DVT given that Coumadin has been discontinued and INR has been reversed Pertinent positives and negatives as discussed above, a complete review of systems was performed and all other systems are negative. Vitals: Signs Reviewed Physical Exam: General: nontoxic, no distress, appears at stated age Derm: warm, dry, intact Head: atraumatic, normocephalic, symmetric Eyes: EOMI, anicteric sclera Mouth: no lip lesion, mucus membranes moist Cardiovascular: S1 S2 reg, no murmur, rubs, or gallops Lungs: CTA bilateral, no rhonchi, no rales, no accessory muscle use Abdominal: soft, non-tender to palpataion, no appreciable organomegaly Extremities: no gross muscle atrophy, no edema, no contractures, right thigh swelling , tender to plapation , feels tense to the touch. no open wounds no active bleeding, periphral pulses DP and PT both palpable right LE Neuro: Alert, Oriented, CNII-XII grossly intact, gait normal Psych: well appearing, appropriate affect Data Received Today: Pertinent Labs: Hgb 9.3, INR 2.1 Imaging: N/A Assessment/Plan: Patient is a 69-year-old female with paroxysmal symptomatic atrial fibrillation with RVR (on Coumadin), history of atrial myxoma status post surgery, sick sinus syndrome status post permanent pacemaker implantation, TIA who presented to the ER with right groin swelling status post right heart cath on 08/20/2024. Active: Right inguinal hematoma, status post right heart catheterization 1 week ago Paroxysmal atrial fibrillation on warfarin - Patient made NPO - Patient INR 2.6 on admission was given 1 unit of FFP's Patient was also given 2 mg IV vitamin K last night, given oral vitamin K 5 mg today - Hold Coumadin, obtain another INR - CBC daily to monitor hemoglobin - Continue to monitor vital signs - s/p 1 unit pRBCs and 1U FFP, Hgb stable - Cardiology (case discussed) repeat imaging with CT angio -imaging was negative for active extravasation Vascular surgery note reviewed, no indication for surgical intervention or hematoma evacuation at this time Spoke with patient in regards to switching Coumadin to with DOAC, recommending her to follow-up with dinking machine operator once discharged Acute blood loss anemia, improving Likely from procedure Transfuse if Hgb below 7.0 due to pre-existing cardiovascular disease Status post 1 unit PRBC and 1U FFP, most recent Hgb 7.7 Follow-up CBC - IV iron infusion, then continue with oral iron on discharge Hyperglycemia in nondiabetic on admission Continue to monitor Continue IV fluids Chronic: Hyperlipidemia Continue Lipitor 20 mg p.o. at bedtime Anxiety Continue Klonopin 0.5 mg p.o. at bedtime F: 0.9% NS at 20 mL/h E: Replete as needed N: N.p.o. A: Fall precautions DVT prophylaxis: Mechanical SCDs, due to active bleeding Code status: Full code Anticipated discharge place: Pending clinical course Anticipated discharge time: Pending clinical course Dictation was produced using [employer] dictation software. please excuse any grammatical, word or spelling errors. Objective - Vital Signs Vital signs: Vital Signs Temp 97.3 F L 08/31/24 08:00 Pulse 71 08/31/24 08:00 Resp 18 08/31/24 08:00 BP 115/46 08/31/24 08:00 Pulse Ox 100 08/31/24 08:00 FiO2 98 08/28/24 08:00 Intake & Output 08/30/24 08/31/24 08/31/24 18:59 06:59 18:59 Intake Total 1000 220 Balance 1000 220 Weight 81.1 kg Intake: Intake, IV Titration 100 Amount Sodium Ferric Gluconat- 100 Sucrose 125 mg In Sodium Chloride 0.9% 100 ml @ 100 mls/hr IVPB ONCE ONE Rx#:[id number] Oral 1000 120 Other: Voiding Method Toilet Toilet # Voids 2 3 1 # Bowel Movements 1 - Labs CBC & Chem 7: 08/31/24 04:15 08/31/24 04:15 Labs: Abnormal Lab Results - Last 24 Hours (Table) 08/31/24 08/31/24 Range/Units 04:15 04:15 RBC 2.59 L (3.80-5.40) m/uL Hgb 7.7 L (11.4-16.0) gm/dL Hct 22.6 L (34.0-46.0) % Plt Count 146 L (150-450) k/uL Sodium 135 L (137-145) mmol/L Glucose 102 H (74-99) mg/dL
--- NOTE | 2024-08-31 20:00 | PN ---
PROGRESS NOTE SUBJECTIVE: This is a 69-year-old lady, who is in the intensive EKG unit as an overflow, awaiting transfer to med/surg bed. She is doing well this morning. Still has discomfort in the right thigh and hematoma, but less pronounced than before. This morning, the hemoglobin is 7.7, it was 8.2 yesterday and had dropped to 7.7. Platelet count is 146. Creatinine is normal at 0.7. The patient continues to have a low hemoglobin and drop in hemoglobin even compared to yesterday. We are going to perform a CT angiogram to make sure that we are not having any further leak. I spoke to Dr. Nunez, the bobbin inspector, who performed the coil occlusion of the right profunda femoris branch. I spoke to Dr. Parsons, the admitting physician, who is going to give her iron. Hopefully that could help bring her hemoglobin up to. If CTA comes back normal, hemoglobin remained stable and she is doing well, hopefully, we can discharge her home tomorrow. PHYSICAL EXAMINATION: VITAL SIGNS: She is afebrile. Heart rate is 63 beats per minute. Blood pressure is 105/55, respiratory rate is 16, O2 saturation is 99%. HEENT: There is no jugular venous distention. Carotid upstroke is normal. There is no bruit. CHEST: Reveals good air entry bilaterally. HEART: Reveals first and second heart sounds. No gallop. No murmur. ABDOMEN: Soft, nontender. EXTREMITIES: Did not reveal any edema. Peripheral pulses are felt. The patient has right thigh hematoma, which looks less pronounced than yesterday and less painful. No active bleeding in either groin. ASSESSMENT AND PLAN: 1. Status post right groin bleeding with hematoma and coil occlusion of the right profunda femoris. 2. Anemia with a drop in her hemoglobin. 3. Right thigh hematoma. PLAN: I am going to obtain a CT angiogram today. The patient will receive iron. We will hold off on blood transfusions unless the hemoglobin drops below 7. Hopefully home tomorrow. MMCHERIL / NATAN: [id number] /
[2024-09-01 07:40] LABS: Basophils % (A) 1 %; Eosinophils # (A) 0.1 k/uL (0-0.7); Eosinophils % (A) 2 %; HCT 24.2 % (34.0-46.0); HGB 8.2 gm/dL (11.4-16.0); Lymphocytes # (A) 1.2 k/uL (1.0-4.8); Lymphocytes % (A) 28 %; MCH 30.2 pg (25.0-35.0); MCV 88.6 fL (80.0-100.0); Mean Platelet Volume 8.7; Monocytes # (A) 0.4 k/uL (0-1.0); Monocytes % (A) 9 %; Neutrophils # (A) 2.7 k/uL (1.3-7.7); Neutrophils % (A) 60 %; Platelet Count 199 k/uL (150-450); RBC 2.73 m/uL (3.80-5.40); RDW 14.1 % (11.5-15.5); WBC 4.5 k/uL (3.8-10.6)
[2024-09-01 07:56] VITALS: BP 111/67; PULSE 63; RESP 16; TEMP 98.9
[2024-09-01 08:02] LABS: ALT 22 U/L (4-34); AST 26 U/L (14-36); African American GFR (CKD) 81 (>60 ml/min/1.73 sqM); Albumin 3.1 g/dL (3.5-5.0); Alkaline Phosphatase 65 U/L (38-126); Anion Gap 5 mmol/L; Blood Urea Nitrogen 14 mg/dL (7-17); Carbon Dioxide 27 mmol/L (22-30); Chloride 105 mmol/L (98-107); Glucose 106 mg/dL (74-99); Non-African American GFR(CKD) 70 (>60 ml/min/1.73 sqM); Potassium 4.5 mmol/L (3.5-5.1); Sodium 137 mmol/L (137-145); Total Protein 5.5 g/dL (6.3-8.2)
--- NOTE | 2024-09-01 10:58 | P.PN ---
Subjective HISTORY OF PRESENT ILLNESS: Patient examined this morning at the bedside. Patient has been moved out of the intensive care unit. She is sitting up in the chair. Patient currently denies chest pain or pressure. She denies any shortness of breath. CTA completed yesterday reviewed by Dr. Freitas. Hemoglobin today is stable at 8.2. PHYSICAL EXAM: VITAL SIGNS: Reviewed. GENERAL: Well-developed in no acute distress. NECK: Supple. No JVD or thyromegaly LUNGS: Respirations even and unlabored. Lungs essentially clear to auscultation bilaterally. HEART: Regular rate and rhythm. S1 and S2 heard. EXTREMITIES: Right thigh hematoma. Normal range of motion. No clubbing or cyanosis. Peripheral pulses intact. No lower extremity edema ASSESSMENT: Acute blood loss anemia secondary to hematoma Status post right groin hematoma with coil occlusion of right profunda femoris Paroxysmal atrial fibrillation History of MTHFR mutation PLAN: Due to hematoma and anemia, patient is to continue to hold Coumadin at the time of discharge Patient is currently stable from a cardiac perspective Discharge per internal medicine Patient to have CBC drawn outpatient in 3 to 4 days Nurse practitioner note has been reviewed by physician. Signing provider agrees with the documented findings, assessment, and plan of care documented by [employer] as a scribe. Objective - Vital Signs Vital signs: Vital Signs Temp 98.9 F 09/01/24 07:54 Pulse 63 09/01/24 07:54 Resp 16 09/01/24 07:54 BP 111/67 09/01/24 07:54 Pulse Ox 99 09/01/24 07:54 FiO2 98 08/28/24 08:00 Intake & Output 08/31/24 09/01/24 09/01/24 18:59 06:59 18:59 Intake Total 380 240 Balance 380 240 Weight 81.4 kg Intake: IV 10 Invasive Line 2 10 Intake, IV Titration 100 Amount Sodium Ferric Gluconat- 100 Sucrose 125 mg In Sodium Chloride 0.9% 100 ml @ 100 mls/hr IVPB ONCE ONE Rx#:[id number] Oral 270 240 Other: Voiding Method Toilet Toilet Toilet # Voids 1 - Labs CBC & Chem 7: 09/01/24 06:53 09/01/24 06:53 Labs: Abnormal Lab Results - Last 24 Hours (Table) 09/01/24 09/01/24 Range/Units 06:53 06:53 RBC 2.73 L (3.80-5.40) m/uL Hgb 8.2 L (11.4-16.0) gm/dL Hct 24.2 L (34.0-46.0) % Glucose 106 H (74-99) mg/dL Total Bilirubin 3.0 H (0.2-1.3) mg/dL Total Protein 5.5 L (6.3-8.2) g/dL Albumin 3.1 L (3.5-5.0) g/dL
--- NOTE | 2024-09-01 14:27 | P.DS ---
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 Patient states that she remained flat until Monday. She started getting up moving around on Monday and noticed pain and swelling. On Monday night, she went to aerobics. Last night she woke up with horrific pain and swelling. Patient reports she was instructed to resume normal activities on Monday, but she waited until Monday. Patient also reports that this has happened in the past. Currently, she denies chest pain, shortness of breath, abdominal pain, nausea or vomiting, diarrhea, fever or chills. ED documentation reviewed. In the ED, patient received a fluid bolus due to hypotension. Type and cross was also completed and 1 unit of FFP was ordered to be received prior to going to the [employer]. - Ultrasound of right lower extremity showed complex fluid collection in the right groin likely large hematoma, no evidence of pseudoaneurysm - CT of the right lower extremity showed active extravasation of arterial blood with large hematoma Patient was admitted to ICU for further management of right inguinal hematoma. Cardiology and vascular surgery were consulted. On admission patient was given 1 unit of FFP's due to INR being 2.6 while Coumadin was on hold. While admitted underwent successful hemostasis of a branch of the right profunda femoris artery using a coil 2 mm x 4 cm and sent 15 cm packing coil, stent was placed of the right SFA. Patient experienced postop complication of acute blood loss anemia a nd was transfused with 1 unit of PRBCs. Patient was also placed on pressors in the ICU. Patient also was given vitamin K due to INR not being subtherapeutic. Patient ultimately downgraded to cardiac stepdown floor. Repeat CTA was done to confirm that there is no current bleeding. Hemoglobin levels were monitored and stabilized. She was cleared by cardiology. At the time of discharge we are holding patient's Coumadin. She was placed on metoprolol and iron supplementation prior to discharge. She is to follow-up with director of planning regarding anticoagulation. She is also to follow-up with cardiology and her PCP. Patient is being discharged home. Vital signs reviewed and stable. Physical examination: Vital signs reviewed General: non toxic, no distress, appears at stated age, normal weight Derm: no unusual rashes/lesions, warm Head: atraumatic, normocephalic, symmetric Eyes: EOMI, anicteric sclera, pupils equal round reactive to light ENT: Nose and ears atraumatic Neck: No cervical lymphadenopathy, trachea midline, supple Mouth: no lip lesion, mucus membranes moist Cardiovascular: S1S2 reg, no murmur, positive dorsalis pedis pulse bilateral, no edema Lungs: CTA bilateral, no rhonchi, no rales, no accessory muscle use Abdominal: soft, nontender to palpation, no guarding Ext: muscle strength 5 out of 5 in all 4 extremities grossly, right thigh swelling , tender to plapation , feels tense to the touch. no open wounds no active bleeding, periphral pulses DP and PT both palpable right LE Neuro: CN II-XI grossly intact, no gross focal neuro deficits Psych: Alert, oriented to person, place, and time A total of greater than 30 minutes of time were spent preparing this complex discharge summary. Patient was discharge on September 01, 2024 at 10: 55. Osvaldo Gale MD PGY-1 IM Dictation was produced using [employer] dictation software. please excuse any grammatical, word or spelling errors. Expected date of discharge: 09/01/24 Attending physician: Tonia Evans MD Consults: 08/27/24 21:31 Consult Physician Urgent Consulting Provider: Teja Nunez Consult Reason/Comments: right leg hematoma, active extravasation Do you want consulting provider notified?: Already Contacted 08/29/24 07:39 Consult Physician Routine Consulting Provider: Steve Bhandari Consult Reason/Comments: right leg hematoma, possible drain Do you want consulting provider notified?: Yes Primary care physician: [facility] Course: I saw and evaluated the patient during the gupta and critical portions of this encounter, and discussed the case in detail with the resident author of this note, I agree with the Assessment and Plan, and my changes, if any, are highlighted in blue. Patient Condition at Discharge: Serious Plan - Discharge Summary Discharge Rx Participant: Yes New Discharge Prescriptions: New Metoprolol Tartrate [Lopressor] 12.5 mg PO BID #90 tab Ferrous Gluconate 324 mg PO DAILY #90 tablet Continue clonazePAM [KlonoPIN] 0.5 mg PO HS traMADol HCL 50 mg PO QID PRN PRN Reason: Pain Rosuvastatin [Crestor] 10 mg PO HS Discontinued Warfarin [Coumadin] 5 mg PO [id number] Warfarin [Coumadin] 2.5 mg PO SUTH Discharge Medication List clonazePAM [KlonoPIN] 0.5 mg PO HS 12/12/22 [History] Rosuvastatin [Crestor] 10 mg PO HS 08/14/24 [History] traMADol HCL 50 mg PO QID PRN 08/14/24 [History] Ferrous Gluconate 324 mg PO DAILY #90 tablet 09/01/24 [Rx] Metoprolol Tartrate [Lopressor] 12.5 mg PO BID #90 tab 09/01/24 [Rx] Follow up Appointment(s)/Referral(s): Lawrence Bautista [STAFF PHYSICIAN] - 1 Week (please call and make appointment) Wil Friedman MD [Primary Care Provider] - 1-2 days (please call and make appointment) Teja Nunez MD [STAFF PHYSICIAN] - 1 Week (please call and make appointment) Ambulatory/Diagnostic Orders: Complete Blood Count w/diff [LAB.AMB] Location: None Selected Patient Instructions/Handouts: Hematoma (ED), Peripheral Vascular Stent Placement (DC) Activity/Diet/Wound Care/Special Instructions: Please see PCP, cardiology, and hematology. Follow up with CBC lab in 3-4 days, please. Discharge/Stand Alone Forms: Who Do I Call?, Community Resources Discharge Disposition: HOME SELF-CARE
== END 2024-09-01 12:15 | disposition home or self-care (01) | DRG 908 ==
LOC: EC 16:54 → 3SCARD 21:33 → 2SICU 23:56 → 3SCARD 08-31 12:09
PROVIDERS: ADMIT Internal Medicine; ATTEND Internal Medicine
PROC: 04L Lower Arteries, Occlusion (ICD-10-PCS; principal; 2024-08-28)
PROC: 047L3DZ Dilation of Left Femoral Artery with Intraluminal Device, Percutaneous Approach (ICD-10-PCS; 2024-08-28)
PROC: B41G1ZZ Fluoroscopy of Left Lower Extremity Arteries using Low Osmolar Contrast (ICD-10-PCS; 2024-08-28)
PROC: 6A750Z6 Ultrasound Therapy of Peripheral Vessels, Single (ICD-10-PCS; 2024-08-28)
DX: I97.630 Postprocedural hematoma of a circulatory system organ or structure following a cardiac catheterization (principal); D62 Acute posthemorrhagic anemia; I49.5 Sick sinus syndrome; I69.354 Hemiplegia and hemiparesis following cerebral infarction affecting left non-dominant side; E72.12 Methylenetetrahydrofolate reductase deficiency; I48.0 Paroxysmal atrial fibrillation; S30.1XXA Contusion of abdominal wall, initial encounter; E78.5 Hyperlipidemia, unspecified; F41.9 Anxiety disorder, unspecified; S70.11XA Contusion of right thigh, initial encounter; R73.9 Hyperglycemia, unspecified; Z79.01 Long term (current) use of anticoagulants; Z95.0 Presence of cardiac pacemaker; Z79.899 Other long term (current) drug therapy
CPT/HCPCS: 36415; 37226; 37244; 75710; 80048; 80053; 83735; 85025; 85027; 85610; 85730; 86850; 86900; 86901; 86920; 93975; 96361; 96374; 96376; 99285